=== PATIENT | female | born 1990 | race Caucasian/White ===

== ENCOUNTER 2017-11-12 11:29 | Emergency (ER) | payer SELFPAY ==
[2017-11-12 11:47] VITALS: BP 132/78; PULSE 87; RESP 18; TEMP 36.8; O2SAT 98; BMI 41.1
[2017-11-12 11:57] LABS: Apearance,Urine Clear (Clear); Color,Urine Yellow (Yellow); Glucose,Urine (UA) Negative (Negative); Ketones,Urine Negative (Negative); Protein,Urine Negative (Negative); Specific Gravity, Urine 1.025 (1.005-1.030)
[2017-11-12 11:58] LABS: Bilirubin,Urine Negative (Negative); Blood, Urine 3+ (Negative); UTC Leukocyte Esterase,Urine 1+ (Negative); UTC Nitrate,Urine Negative (Negative); Urobilinogen,Urine 0.2 EU/dl (0.2)
--- NOTE | 2017-11-12 12:18 | HMH.EDUTC ---
[facility] [place] Disposition Clinical Impression: UTI (urinary tract infection) Qualifiers: Urinary tract infection type: site unspecified Hematuria presence: with hematuria Qualified Code(s): N39.0 - Urinary tract infection, site not specified Disposition: Home, Self-Care Condition on Discharge: Good Instructions: Urinary Tract Infection, DI for Urinary Tract Infection (UTI) Additional Instructions: *Increase fluids. Water not Soda or Tea *Start antibiotic immediately and be sure to take as ordered for the FULL length of time although you should start to see improvement over the next 48 hours *Pyridium as needed Remember this medication will turn your urine [place]. This is normal but it will stain what ever it gets on *You should not use Pyridium for more than 48 hours. If so , follow up with your primary physician to review urine culture and ensure that antibiotic is adequate for infection *Be SURE to follow up anytime for new or worsening symptoms. AND in 48 hours for urine culture results AND in 10-14 days to repeat UA to ensure infection is resolved and blood no longer present *Be sure to let your PCP know that we sent urine cultures from the [facility] so they can follow up to ensure that you area the on the correct antibiotic Prescriptions: Phenazopyridine HCl [Pyridium 200mg Tablet] 200 pow PO TID #6 tab Sulfamethoxazole/Trimethoprim [Bactrim DS tablet] 1 each PO BID #20 tab Referrals: Edith Perea PA [Primary Care Provider] - Forms: Work/School Release Time of Disposition: 12:54 Medical Decision Making - Medical Records Medical records reviewed: Yes: I reviewed the patient's medical records. Vital Signs: 11/12/17 11:47 Temperature 98.2 F Temperature Source Temporal Artery Scan Pulse Rate [Brachial] 87 Respiratory Rate 18 Blood Pressure [Right Arm] 132/78 Blood Pressure Mean [Right Arm] 96 Blood Pressure Source [Right Arm] Automatic Cuff Blood Pressure Position [Right Arm] Sitting 02 Sat by Pulse Oximetry 98 Oxygen Delivery Method Room Air - Lab Data Lab results reviewed: Yes: I reviewed the patient's lab results. Lab Results 11/12/17 11:38: Urine Color Yellow, Urine Appearance Clear, Urine pH 6.0, Ur Specific [place] 1.025, Urine Protein Negative, Urine Glucose (UA) Negative, Urine Ketones Negative, Urine Blood 3+, Urine Nitrate Negative, Urine Bilirubin Negative, Urine Urobilinogen 0.2, Ur Leukocyte Esterase 1+ A Orders (Tests/Meds): ED MEDICATIONS Discontinued Medications Generic Name Dose Route Start Last Admin Trade Name Leo PRN Reason Stop Dose Admin Ceftriaxone Sodium 1 gm 11/12/17 12:34 11/12/17 12:38 Rocephin 1gm Vial IM 11/12/17 12:35 1 gm ONCE ONE Administration Lidocaine HCl 0 ml 11/12/17 12:34 11/12/17 12:39 Lidocaine 1% 10ml Mdv IM 11/12/17 12:35 2.1 ml ONCE ONE Administration ORDERS Category Date Time Status Urine Culture Stat Micro 11/12/17 12:40 Received - Miller Inquiry Pt receiving controlled substance: No Miller was queried for this patient: No [facility] HPI - General Stated complaint: Poss UTI Mode of Arrival: Ambulatory Source of Information: Patient Limitations: No Limitations Description of Symptoms (Recalled from Triage Doc. by RN): D/C AND BURNING WITH URINATION X 2 WEEKS HEENT Symptoms (Recalled from RN notes): No Resp Symptoms (Recalled from RN notes): No Skin Symptoms (Recalled from RN notes): No MS Symptoms (Recalled from RN notes): No Functional Status (Recalled from RN notes): NA - History of Present Illness Provider Complaint: Patient states that she has been having pain and burning with urination now for about 2 weeks States that she has been having pain on and off in her lower back State that she noticed that her urine looked dark States that she has had UTI before and feels like it did then - Related Data Previous Rx's Medication Instructions Recorded Phenazopyridine HCl [Pyridium 200 pow PO TID #6 tab 03/
--- NOTE | 2017-11-12 12:29 | ED_ITS ---
[facility] [place] Clinical Impression: UTI (urinary tract infection) Qualifiers: Urinary tract infection type: site unspecified Hematuria presence: with hematuria Qualified Code(s): N39.0 - Urinary tract infection, site not specified Disposition: Home, Self-Care Condition on Discharge: Good Instructions: Urinary Tract Infection, DI for Urinary Tract Infection (UTI) Additional Instructions: *Increase fluids. Water not Soda or Tea *Start antibiotic immediately and be sure to take as ordered for the FULL length of time although you should start to see improvement over the next 48 hours *Pyridium as needed Remember this medication will turn your urine [place]. This is normal but it will stain what ever it gets on *You should not use Pyridium for more than 48 hours. If so , follow up with your primary physician to review urine culture and ensure that antibiotic is adequate for infection *Be SURE to follow up anytime for new or worsening symptoms. AND in 48 hours for urine culture results AND in 10-14 days to repeat UA to ensure infection is resolved and blood no longer present *Be sure to let your PCP know that we sent urine cultures from the [facility] so they can follow up to ensure that you area the on the correct antibiotic Prescriptions: Phenazopyridine HCl [Pyridium 200mg Tablet] 200 pow PO TID #6 tab Sulfamethoxazole/Trimethoprim [Bactrim DS tablet] 1 each PO BID #20 tab Referrals: Edith Perea PA [Primary Care Provider] - Forms: Work/School Release Time of Disposition: 12:54 Medical Decision Making - Medical Records Medical records reviewed: Yes: I reviewed the patient's medical records. Vital Signs: 11/12/17 11:47 Temperature 98.2 F Temperature Source Temporal Artery Scan Pulse Rate [Brachial] 87 Respiratory Rate 18 Blood Pressure [Right Arm] 132/78 Blood Pressure Mean [Right Arm] 96 Blood Pressure Source [Right Arm] Automatic Cuff Blood Pressure Position [Right Arm] Sitting 02 Sat by Pulse Oximetry 98 Oxygen Delivery Method Room Air - Lab Data Lab results reviewed: Yes: I reviewed the patient's lab results. Lab Results 11/12/17 11:38: Urine Color Yellow, Urine Appearance Clear, Urine pH 6.0, Ur Specific [place] 1.025, Urine Protein Negative, Urine Glucose (UA) Negative, Urine Ketones Negative, Urine Blood 3+, Urine Nitrate Negative, Urine Bilirubin Negative, Urine Urobilinogen 0.2, Ur Leukocyte Esterase 1+ A Orders (Tests/Meds): ED MEDICATIONS Discontinued Medications Generic Name Dose Route Start Last Admin Trade Name Leo PRN Reason Stop Dose Admin Ceftriaxone Sodium 1 gm 11/12/17 12:34 11/12/17 12:38 Rocephin 1gm Vial IM 11/12/17 12:35 1 gm ONCE ONE Administration Lidocaine HCl 0 ml 11/12/17 12:34 11/12/17 12:39 Lidocaine 1% 10ml Mdv IM 11/12/17 12:35 2.1 ml ONCE ONE Administration ORDERS Category Date Time Status Urine Culture Stat Micro 11/12/17 12:40 Received - Miller Inquiry Pt receiving controlled substance: No Miller was queried for this patient: No [facility] [place] HPI - General Stated complaint: Poss UTI Mode of Arrival: Ambulatory Source of Information: Patient Limitations: No Limitations Description of Symptoms (Recalled from Triage Doc. by RN): D/C AND BURNING WITH URINATION X 2 WEEKS HEENT Symptoms (Recalled from RN notes): No Resp Symptoms (Recalled fr
[2017-11-12 12:55] VITALS: BP 132/78; PULSE 87; RESP 18; TEMP 36.8
== END 2017-11-12 12:56 | disposition home or self-care (01) ==
PROVIDERS: Emergency Provider Nurse Practitioner; Family Provider Physician Assistant; PCP Physician Assistant
DX: N39.0 Urinary tract infection, site not specified (principal); F17.210 Nicotine dependence, cigarettes, uncomplicated
CPT/HCPCS: 81003; 87086; 96372; 99202

== ENCOUNTER → 2018-08-06 18:10 | Outpatient (CLI) | payer BC, SELFPAY ==
[2018-08-06 18:50] LABS: Basophils % 0.4 % (0.1-2.0); Eosinophils # 0.2 K/mm3 (0.0-0.4); Eosinophils % 2.7 % (0.1-12.0); Hematocrit 45.5 % (37.0-47.0); Hemoglobin 15.3 g/dL (12.2-16.2); Lymphocytes # 2.5 K/mm3 (0.7-4.5); Lymphocytes % 32.8 % (10-50); Mean Corpuscular HGB Conc 33.5 g/dL (31.8-35.4); Mean Corpuscular Hemoglobin 30.1 pg (27.0-31.2); Mean Corpuscular Volume 89.8 fl (81-99); Mean Platelet Volume 9.3 fl (7.4-10.4); Monocytes # 0.4 K/mm3 (0.1-1.0); Monocytes % 5.5 % (1.7-9.3); Neutrophils # 4.5 K/mm3 (1.8-7.8); Neutrophils % 58.7 % (37.0-80.0); Platelet Count 264 K/mm3 (142-424); Red Blood Count 5.07 M/mm3 (4.20-5.40); Red Cell Distribution Width 13.5 % (11.5-17.5); White Blood Count 7.7 K/mm3 (4.8-10.8)
[2018-08-06 19:40] LABS: Alanine Aminotransferase 36 U/L (12-78); Albumin Level 3.9 gm/dL (3.4-5.0); Albumin/Globulin Ratio 1.1 (1.1-1.8); Alkaline Phosphatase 89 U/L (46-116); Anion Gap 16.3 mEq/L (5-15); Aspartate Amino Transferase 13 U/L (15-37); Bilirubin,Total 0.2 mg/dL (0.2-1.0); Blood Urea Nitrogen 11 mg/dL (7-18); Calcium 9.1 mg/dL (8.5-10.1); Carbon Dioxide 23 mmol/L (21.0-32.0); Chloride 105 mmol/L (98-107); Cholesterol 191 mg/dL (140-200); Creatinine,Serum 0.61 mg/dL (0.55-1.02); Estimated Glomerular Filt Rate 118 ml/min (>60); GFR (African American) 142 ML/MIN (>60); Globulin 3.6 gm/dl (1.3-3.2); Glucose 97 mg/dL (74-106); HDL Cholesterol 38 mg/dL (29-89); LDL Cholesterol 115 mg/dL (0-130); Potassium 4.3 mmoL/L (3.5-5.1); Sodium 140 mmol/L (136-145); Thyroid Stimulating Hormone 1.87 uIU/ml (0.358-3.740); Total Protein,Serum 7.5 gm/dL (6.4-8.2); Triglycerides 189 mg/dL (30-200); VLDL Cholesterol 38 mg/dL (0-40)
[2018-08-09 09:12] LABS: Vitamin D 25 Hydroxy 15.4 ng/mL (30.0-100.0)
== END ==
PROVIDERS: Visit Provider Physician Assistant
DX: E03.9 Hypothyroidism, unspecified (principal); F90.9 Attention-deficit hyperactivity disorder, unspecified type
CPT/HCPCS: 80053; 80061; 82652; 84436; 84443; 85025

== ENCOUNTER → 2018-10-09 18:00 | Outpatient (CLI) | payer BC, SELFPAY ==
[2018-10-09 20:33] LABS: Amphetamine/Metha Screen,Urine Positive ng/mL (<1000); Barbiturates Screen,Urine Negative ng/mL (<200); Benzodiazepines Screen,Urine Negative ng/mL (<200); Cannabinoid Screen,Urine Positive ng/mL (<50); Cocaine Screen,Urine Positive ng/mL (<300); Methadone Screen,Urine Negative ng/mL (<300); Opiate Screen,Urine Negative ng/mL (<300); Phencyclidine Screen,Urine Negative ng/mL (<25)
[2018-10-13 13:06] LABS: Benzoylecgonine (GC/MS) 2610 ng/mL (Cutoff=150); Cocaine + Metabolite Positive (.)
== END ==
PROVIDERS: Visit Provider Physician Assistant
DX: Z79.899 Other long term (current) drug therapy (principal)
CPT/HCPCS: 80305; 80353

== ENCOUNTER → 2019-05-21 14:26 | Outpatient (CLI) | payer BC, SELFPAY | PROVIDERS: Visit Provider Nurse Practitioner Family | DX: R30.0 Dysuria (principal) | CPT/HCPCS: 87086 ==

== ENCOUNTER → 2020-03-03 16:41 | Outpatient (CLI) | payer SELFPAY ==
[2020-03-03 16:57] LABS: Basophils % 0.5 % (0.1-2.0); Eosinophils # 0.1 K/mm3 (0.0-0.4); Eosinophils % 1.7 % (0.1-12.0); Hematocrit 46.4 % (37.0-47.0); Hemoglobin 16.2 g/dL (12.2-16.2); Lymphocytes # 2.4 K/mm3 (0.7-4.5); Lymphocytes % 29.7 % (10-50); Mean Corpuscular HGB Conc 34.9 g/dL (31.8-35.4); Mean Platelet Volume 8.7 fl (7.4-10.4); Monocytes # 0.5 K/mm3 (0.1-1.0); Monocytes % 5.7 % (1.7-9.3); Neutrophils % 62.5 % (37.0-80.0); Platelet Count 259 K/mm3 (142-424); Red Blood Count 5.22 M/mm3 (4.20-5.40); Red Cell Distribution Width 13.7 % (11.5-17.5); White Blood Count 7.9 K/mm3 (4.8-10.8)
[2020-03-03 17:01] LABS: HCG Qualitative, Serum Negative (Negative)
[2020-03-03 17:08] LABS: Chloride 106 mmol/L (98-107); Potassium 4.9 mmoL/L (3.5-5.1); Sodium 137 mmol/L (136-145)
[2020-03-03 17:11] LABS: Alanine Aminotransferase 34 U/L (12-78); Albumin Level 4.5 g/dl (3.5-5.0); Albumin/Globulin Ratio 1.4 (1.1-1.8); Alkaline Phosphatase 106 U/L (38-126); Anion Gap 12.9 mEq/L (5-15); Aspartate Amino Transferase 32 U/L (14-36); Bilirubin,Total 0.6 mg/dl (0.2-1.3); Blood Urea Nitrogen 11 mg/dl (7-17); Carbon Dioxide 23 mmol/L (22.0-30.0); Cholesterol 250 mg/dl (140-200); Estimated Glomerular Filt Rate 119 ml/min (>60); GFR (African American) 144 ML/MIN (>60); Globulin 3.3 g/dL (1.3-3.2); Total Protein,Serum 7.8 g/dl (6.3-8.2); Triglycerides 220 mg/dl (30-150); VLDL Cholesterol 44 mg/dL (0-40)
[2020-03-03 17:12] LABS: Calcium 9.6 mg/dl (8.4-10.2); Chol/HDL Ratio 6.4 (1-3.5); Glucose 97 mg/dl (74-100); HDL Cholesterol 39 mg/dl (40-60)
[2020-03-03 17:22] LABS: Campylobacter Not Detected (NotDetected); Clostridium Difficile A/B, PCR Not Detected (NotDetected); Enteroaggregative E coli Not Detected (NotDetected); Enteropathogenic E coli Not Detected (NotDetected); Enterotoxigenic E coli Not Detected (NotDetected); Plesimonas Shigalloides, PCR Not Detected (NotDetected); Salmonella, PCR Not Detected (NotDetected); Vibrio Cholerae Not Detected (NotDetected); Vibrio, PCR Not Detected (NotDetected); Yersinia Entercolitica, PCR Not Detected (NotDetected)
[2020-03-03 17:22] LABS: Direct LDL Cholesterol 190.51 mg/dL (100-129)
[2020-03-03 17:23] LABS: Adenovirus F 40/41, stool Not Detected (NotDetected); Astrovirus Not Detected (NotDetected); Cryptosporidium Not Detected (NotDetected); Cyclospora Cayetanesis Not Detected (NotDetected); Entamoeba histolytica Not Detected (NotDetected); Giardia lamblia Not Detected (NotDetected); Norovirus Not Detected (NotDetected); Rotavirus A Not Detected (NotDetected); Sapovirus Not Detected (NotDetected); Shiga-like toxin E coli Not Detected (NotDetected); Shigella Enterovasive E coli Not Detected (NotDetected)
[2020-03-03 17:28] LABS: T4 (Thyroxine) 11.3 ug/dl (5.53-11.0)
[2020-03-03 17:42] LABS: Thyroid Stimulating Hormone 3.49 uIU/mL (0.465-4.68)
[2020-03-10 04:44] LABS: 1,25 Dihydroxy Vitamin D 72 pg/mL (.); 1,25-Dihydroxy, Vitamin D-2 <10 pg/mL (.); 1,25-Dihydroxy, Vitamin D-3 72 pg/mL (.)
== END ==
PROVIDERS: Visit Provider Emergency Medicine
DX: R19.7 Diarrhea, unspecified (principal)
CPT/HCPCS: 80053; 80061; 82652; 84436; 84443; 84703; 85025; 87507

== ENCOUNTER 2020-03-14 17:14 | Emergency (ER) | payer BC, SELFPAY ==
[2020-03-14 17:15] VITALS: BP 148/82; PULSE 98; RESP 20; TEMP 36.7; O2SAT 100; BMI 42.9
--- NOTE | 2020-03-14 17:40 | HMH.EDUTC ---
[facility] [place] Clinical Impression: Pain, dental, Dental abscess Disposition: Home, Self-Care Condition on Discharge: Good Instructions: Tooth Abscess, DI for Dental Pain Additional Instructions: Follow up with your dentist as soon as they can see you. Take the oral antibiotics as directed. GO TO THE ER FOR ANY WORSENING SYMPTOMS OR CONCERNS Prescriptions: Ibuprofen [Ibuprofen 800mg Tablet] 800 mg PO Q8HP PRN #30 tab PRN Reason: Moderate Pain Transmission Status: Received by [id number] Amoxicillin/Potassium Clav [Augmentin 875-125 Tablet] 1 tab PO Q12H 10 Days #20 tab Transmission Status: Received by [id number] Referrals: Dante Foster MD [Primary Care Provider] - Forms: Work/School Release Time of Disposition: 17:43 Medical Decision Making - Medical Records Medical records reviewed: No: I reviewed the patient's medical records. - Miller Inquiry Pt receiving controlled substance: No Vital Signs: 03/14/20 17:15 03/14/20 17:54 Temperature 98.0 F 98.0 F Temperature Source Oral Oral Pulse Rate 98 H Pulse Rate [Radial] 98 H Respiratory Rate 20 20 Blood Pressure 148/82 H Blood Pressure [Right Arm] 148/82 H Blood Pressure Mean [Right Arm] 104 Blood Pressure Source Automatic Cuff Blood Pressure Source [Right Arm] Automatic Cuff Blood Pressure Position Supine Blood Pressure Position [Right Arm] Sitting 02 Sat by Pulse Oximetry 100 Oxygen Delivery Method Room Air Room Air Orders (Tests/Meds): ED MEDICATIONS Discontinued Medications Generic Name Dose Route Start Last Admin Trade Name Freq PRN Reason Stop Dose Admin Ceftriaxone Sodium 1 gm 03/14/20 17:41 03/14/20 17:45 Rocephin 1gm Vial IM 03/14/20 17:42 1 gm ONCE ONE Administration Protocol Ketorolac Tromethamine 30 mg 03/14/20 17:41 03/14/20 17:46 Toradol 60mg/2ml Vial IM 03/14/20 17:42 30 mg ONCE ONE Administration Lidocaine HCl 0 ml 03/14/20 17:41 03/14/20 17:46 Lidocaine 1% 10ml Mdv IM 03/14/20 17:42 2.1 ml ONCE ONE Administration [facility] [place]PI - General Stated complaint: PAIN R FACIAL AREA AND GOES TO EAR Time Seen by Provider: 03/14/20 17:40 Mode of Arrival: Ambulatory Source of Information: Patient Limitations: No Limitations Description of Symptoms (Recalled from Triage Doc. by RN): pain since sunday on the right side of the face HEENT Symptoms (Recalled from RN notes): Yes Resp Symptoms (Recalled from RN notes): No Skin Symptoms (Recalled from RN notes): No MS Symptoms (Recalled from RN notes): No Functional Status (Recalled from RN notes): wnl - History of Present Illness Provider Complaint: she c/o right lower jaw dental pain and swellling for the past 3 days. - Related Data Previous Rx's Medication Instructions Recorded albuterol sulfate 90 mcg/actuation 1 puff INHALATION Q6H PRN #6.7 g 08/05/19 aerosol inhaler atorvastatin 10 mg tablet 10 mg PO QHS #90 tab 03/11/20 Amoxicillin/Potassium Clav 1 tab PO Q12H 10 Days #20 tab 03/14/20 [Augmentin 875-125 Tablet] Ibuprofen [Ibuprofen 800mg 800 mg PO Q8HP PRN #30 tab 03/14/20 Tablet] Allergies Allergy/AdvReac Type Severity Reaction Status Date / Time No Known Allergies Allergy Verified 03/03/20 15:20 - Worker's Comp Is this a Worker's Comp case?: No [facility] History - Hepatitis A Screen Drug use history?: No High risk sexual behaviors?: No History of sexually transmitted infection?: No Currently employed?: No Childcare worker?: No Do you have indoor plumbing?: Yes Do you have electricity?: Yes Attestation statement:: This patient has been screened for Hepatitis A risk factors. I have reviewed the patient's past medical history: Yes Medical History: Reports:: Asthma Denies:: Cancer, Diabetes Mellitus Type 1, Diabetes Mellitus Type 2, MRSA Other Medical History: Reports: Hypothyroidism Comment: vitamin d def Other Surgeries: Yes: Colonoscopy, Other (Ca
[2020-03-14 17:54] VITALS: BP 148/82; PULSE 98; RESP 20; TEMP 36.7; O2SAT 100
== END 2020-03-14 17:55 | disposition home or self-care (01) ==
PROVIDERS: Emergency Provider Nurse Practitioner Family; PCP Emergency Medicine
DX: K04.7 Periapical abscess without sinus (principal); J45.909 Unspecified asthma, uncomplicated; E03.9 Hypothyroidism, unspecified; F17.210 Nicotine dependence, cigarettes, uncomplicated; Z79.899 Other long term (current) drug therapy
CPT/HCPCS: 96372; 99201

== ENCOUNTER → 2020-03-15 10:33 | Outpatient (CLI) | payer OTHER, SELFPAY ==
--- NOTE | 2020-03-15 10:34 | CT_ITS ---
PROCEDURE: CT ABDOMEN PELVIS W CON CLINICAL INDICATION: diarrhea Upper abdominal pain with diarrhea COMPARISON: No exams were available for comparison TECHNIQUE: IV Contrast: 75ML OPTIRAY 350 Oral Contrast None Axial images obtained with sagittal and coronal reformats. All CT scans at the facility use one or more dose reduction, viz: automated exposure control, ma/kV adjustment per patient size (including targeted exams where dose is matched to indication, i.e. head), or iterative reconstruction technique. FINDINGS: LOWER THORAX: No acute finding ABDOMEN & PELVIS: The liver, adrenal glands, pancreas, and kidneys have an unremarkable appearance. The spleen is enlarged at 14 cm. There is a nodular area of soft tissue density along the right lateral aspect the gallbladder measuring 6 mm and could be due to a polyp or noncalcified stone. Gallbladder ultrasound may provide further evaluation. No intestinal obstruction or free air. Unremarkable appendix. No pelvic mass or abnormal fluid collection No acute bony findings. IMPRESSION: 1. Possible gallbladder polyp ordered noncalcified adherent stone. Consider gallbladder ultrasound for further evaluation 2. Mild splenomegaly Dictated by: Elliot Brown MD 03/16/2020 11:16 Electronically signed by Elliot Brown MD in [place] 03/16/2020 11:16
== END ==
PROVIDERS: PCP Emergency Medicine; Visit Provider Emergency Medicine
DX: R19.7 Diarrhea, unspecified (principal)
CPT/HCPCS: 74177; Q9967

== ENCOUNTER → 2020-03-31 08:42 | Outpatient (CLI) | payer BC, SELFPAY ==
--- NOTE | 2020-03-31 08:43 | US_ITS ---
PROCEDURE: US GALLBLADDER CLINICAL INDICATION: stone vs polyp Upper abdominal pain, diarrhea COMPARISON: CT ABDOMEN PELVIS W CON from 03/15/2020 FINDINGS: Pancreas: Unremarkable/Not well seen Liver: Unremarkable. There is appropriate direction of blood flow within a non dilated portal vein. Right kidney: Unremarkable appearing. No hydronephrosis. Gallbladder: There is a 7 mm polyp arising from the anterior wall of the gallbladder. The gallbladder is small with mildly thickened wall. Common bile duct is normal at 2 mm. No shadowing stones are evident. No pericholecystic fluid IMPRESSION: There is a 7 mm gallbladder polyp with mild thickening of the gallbladder wall. No gallstones apparent Dictated by: Elliot Brown MD 03/31/2020 15:17 Electronically signed by Elliot Brown MD in [place] 03/31/2020 15:17
== END ==
PROVIDERS: PCP Emergency Medicine; Visit Provider Emergency Medicine
DX: R93.89 Abnormal findings on diagnostic imaging of other specified body structures (principal)
CPT/HCPCS: 76705

== ENCOUNTER → 2020-04-07 11:49 | Outpatient (CLI) | payer BC, SELFPAY ==
[2020-04-07 13:54] LABS: Coronavirus 19 IgM Antibody Negative (Negative)
[2020-04-07 13:56] LABS: Coronavirus 19 IgG Antibody Positive (Negative)
== END ==
PROVIDERS: Visit Provider Internal Medicine Gastroenterology
DX: Z01.818 Encounter for other preprocedural examination (principal); Z12.11 Encounter for screening for malignant neoplasm of colon
CPT/HCPCS: 36415; 86328

== ENCOUNTER 2020-04-09 09:48 | Day surgery (SDC) | payer BC, SELFPAY ==
[2020-04-05 14:36] VITALS: BMI 46.5
[2020-04-09] VITALS (7 sets, daily range): BP systolic 119–153; BP diastolic 45–103; PULSE 74–89; RESP 16–18; TEMP 36.1–36.6; O2SAT 95–98
[2020-04-09 10:43] LABS: Urine Pregnancy, HCG Qual. Negative (Negative)
--- NOTE | 2020-04-09 10:53 | HMH.ANESCL ---
[facility] [place] Anesthesia Checklist - Patient Identification Patient Identification: Arm Band, Verbal (Name & ) - Structural Data Admitted From: Home Planned Operative Procedure/s: Colonoscopy Consent for Planned Operative Procedure(s) Verified: Yes Verified Documents: Surgical Consent, History and Physical - NPO Status Verified Time NPO: 00:00 - Chart Verification Results Verified: HCG - Additional verifications Patient : No Anesthesia Reactions: No - Airway Assessment C-Spine Mobility Assessed: Yes TMJ Mobility Assessed: Yes Dentition: Good Dentition - Neurological Assessment Level of Consciousness: Awake, Alert, Appropriate, Follows Commands Hx Seizures: No Numbness or tingling in extremities: No - Anesthesia Plan Anesthesia Risk discussed: Yes Anesthesia Plan: Verified ASA Class: III Anesthesia Type: MAC [facility] [place] History I have reviewed the patient's past medical history: Yes Medical History: Reports:: Asthma, Cancer (cervical) Denies:: Diabetes Mellitus Type 1, Diabetes Mellitus Type 2, Internal Pacemaker, MRSA, Seizures *Have you ever received a pneumonia vaccine?: No *Have you received a flu vaccine this season?: No Other Medical History: Reports: Hypothyroidism Comment:: morbid obesity Anesthesia experience/problems:: No prior complications Other Surgeries: Yes: Colonoscopy, Other (Cancer cells removed from Cervix). No: Pacemaker Amputation: No Fractures: No - *Social History Last grade of school completed: 11th or 12th Smoking Status: Current every day smoker Tobacco Type: cigarettes # Packs/Day (cigarettes): 1 Alcohol Intake: never Substance Use Type: former substance user, marijuana, crack/cocaine, amphetamines *Occupational Status:: unemployed Housing: apartment Household Members: none *Travel in the last 8 weeks: None Family Hx:: Asthma, Cancer, Diabetes, Hypertension
[2020-04-09 11:20] LABS: Barbiturates Screen,Urine Negative ng/ml (<200)
[2020-04-09 11:21] LABS: Benzodiazepines Screen,Urine Negative ng/ml (<200); Cannabinoid Screen,Urine Positive ng/ml (<50)
[2020-04-09 11:22] LABS: Cocaine Screen,Urine Negative ng/ml (<300)
[2020-04-09 11:23] LABS: Methadone Screen,Urine Negative ng/ml (<300); Opiate Screen,Urine Negative ng/ml (<300)
[2020-04-09 11:24] LABS: Phencyclidine Screen,Urine Negative ng/ml (<25)
--- NOTE | 2020-04-09 12:18 | HMH.PROC ---
[facility] Procedure Note Procedure Note:: Colonoscopy Procedure Report: Colonoscopy with cold biopsies Endoscopist: Ulysses Burroughs II, MD Referring physician: Dante Foster MD Date of Procedure: April 09, 2020 Equipment: Olympus 180 variable stiffness pediatric colonoscope Sedation: MAC sedation Indication: Mrs. Vargas is a 29-year-old female with diarrhea that began 8 to 9 months ago. She also has associated right upper quadrant abdominal pain. She reports 5-6 loose bowel movements daily. She reports no gassiness or bloating. She reports no rectal bleeding, weight loss or family history of IBD (no family history of colitis or Crohn's disease). She reports no family history of colon cancer. This is her first colonoscopy for diagnostic purposes. She did have PCR gastrointestinal panel on March 03, 2020 that was normal. She also had normal CBC and normal liver function and chemistries. Procedure: Prior to the procedure, a history and physical exam was performed, and patient's medications and allergies were reviewed. The risks, benefits and alternatives of the sedation and procedure were discussed with the patient. All questions were answered and informed consent was obtained. The patient was brought to the procedure room. Patient identification and proposed procedure were verified by the physician and the nurse. The patient was placed in a left lateral decubitus position and the scope was passed under direct vision. Throughout the procedure, the patient's blood pressure, pulse, and oxygen saturations were monitored continuously. The colonoscopy was accomplished without difficulty. The patient tolerated the procedure well. Findings: On digital rectal examination there was normal rectal tone. There were no external hemorrhoids. The colonoscope was introduced through the anal canal to the rectum and advanced to the cecum. The ileocecal valve and appendiceal orifice were identified. The scope was advanced a short distance into the ileum which appeared grossly normal. The scope was then withdrawn into the colon. The cecum, ascending, transverse, descending, sigmoid and rectum were grossly normal. There was a diminutive 3 mm polyp in the descending colon that was removed via cold biopsy. Cold biopsies were taken from the right colon to rule out microscopic colitis. There were no other mucosal abnormalities identified. Upon retroflexion within the rectum there were grade 1 internal hemorrhoids.The preparation was excellent throughout with [place] Preparation Score of 9. The cecal time was 12 minutes. Impression: 1. Diminutive descending colon polyp 2. Grade 1 internal hemorrhoids Plan: I will follow-up the polyp histology as well as the random colon biopsies. I suspect that she has IBS?D. We will discuss treatment options that may include antispasmodics (dicyclomine) versus Viberzi. I am going to recommend right upper quadrant abdominal ultrasound and HIDA scan because of her right upper quadrant pain.
[2020-04-09 15:59] LABS: Amphetamine/Metha Screen,Urine Negative ng/ml (<1000)
== END 2020-04-09 13:25 | disposition home or self-care (01) ==
PROVIDERS: Nurse Anesthetist, Certified Registered; PCP Emergency Medicine; Visit Provider Internal Medicine Gastroenterology
PROC: 0DJD8ZZ Inspection of Lower Intestinal Tract, Via Natural or Artificial Opening Endoscopic (ICD-10-PCS; CPT 45378; principal; 2020-04-09 11:00)
DX: K63.5 Polyp of colon (principal); K64.0 First degree hemorrhoids; J45.909 Unspecified asthma, uncomplicated; Z85.41 Personal history of malignant neoplasm of cervix uteri; E03.9 Hypothyroidism, unspecified; Z72.0 Tobacco use; Z83.3 Family history of diabetes mellitus; Z82.49 Family history of ischemic heart disease and other diseases of the circulatory system; Z80.9 Family history of malignant neoplasm, unspecified; Z82.5 Family history of asthma and other chronic lower respiratory diseases
CPT/HCPCS: 45380; 80305; 81025

== ENCOUNTER → 2020-04-15 10:01 | Outpatient (CLI) | payer BC, SELFPAY ==
[2020-04-15 10:20] LABS: Basophils % 0.5 % (0.1-2.0); Eosinophils # 0.4 K/mm3 (0.0-0.4); Eosinophils % 4.2 % (0.1-12.0); Hematocrit 44.2 % (37.0-47.0); Hemoglobin 14.8 g/dL (12.2-16.2); Lymphocytes # 2.4 K/mm3 (0.7-4.5); Lymphocytes % 28.6 % (10-50); Mean Corpuscular HGB Conc 33.4 g/dL (31.8-35.4); Mean Corpuscular Hemoglobin 30.8 pg (27.0-31.2); Mean Corpuscular Volume 92.2 fl (81-99); Mean Platelet Volume 8.2 fl (7.4-10.4); Monocytes # 0.4 K/mm3 (0.1-1.0); Monocytes % 4.9 % (1.7-9.3); Neutrophils # 5.1 K/mm3 (1.8-7.8); Neutrophils % 61.8 % (37.0-80.0); Platelet Count 242 K/mm3 (142-424); Red Cell Distribution Width 13.5 % (11.5-17.5); White Blood Count 8.3 K/mm3 (4.8-10.8)
[2020-04-15 10:22] LABS: Urine Pregnancy, HCG Qual. Negative (Negative)
[2020-04-15 10:53] LABS: Alanine Aminotransferase 34 U/L (12-78); Albumin Level 4.1 g/dl (3.5-5.0); Albumin/Globulin Ratio 1.5 (1.1-1.8); Alkaline Phosphatase 103 U/L (38-126); Anion Gap 16.2 mEq/L (5-15); Aspartate Amino Transferase 25 U/L (14-36); Bilirubin,Total 0.4 mg/dl (0.2-1.3); Blood Urea Nitrogen 11 mg/dl (7-17); Calcium 9.1 mg/dl (8.4-10.2); Carbon Dioxide 21 mmol/L (22.0-30.0); Chloride 106 mmol/L (98-107); Estimated Glomerular Filt Rate 147 ml/min (>60); GFR (African American) 178 ML/MIN (>60); Globulin 2.8 g/dL (1.3-3.2); Glucose 119 mg/dl (74-100); Potassium 4.2 mmoL/L (3.5-5.1); Sodium 139 mmol/L (136-145); Total Protein,Serum 6.9 g/dl (6.3-8.2)
[2020-04-15 11:16] LABS: Coronavirus 19 IgG Antibody Negative (Negative); Coronavirus 19 IgM Antibody Negative (Negative)
== END ==
PROVIDERS: Visit Provider Surgery
DX: Z01.818 Encounter for other preprocedural examination (principal); K81.1 Chronic cholecystitis
CPT/HCPCS: 36415; 80053; 81025; 85025; 86328

== ENCOUNTER 2020-04-16 06:53 | Day surgery (SDC) | payer BC, SELFPAY ==
[2020-04-14 14:05] VITALS: BMI 46.5
[2020-04-16] VITALS (14 sets, daily range): BP systolic 117–157; BP diastolic 72–104; PULSE 69–87; RESP 12–25; TEMP 36.3–36.9; O2SAT 87–99
--- NOTE | 2020-04-16 09:12 | HMH.OPNOTE ---
Date of procedure: 04/16/20 Pre-op Diagnosis:: Chronic cholecystitis Gallbladder polyp Post-op Diagnosis:: Same Procedure performed:: Laparoscopic cholecystectomy Surgeon:: Danyel Christina MD [employer]BI[employer]GE DRIVER:: Jose L Weeks Anesthesia: GETA Estimated blood loss (mL): 15 Operative findings:: Moderate pericholecystic fat stranding Significant inflammatory response and thickening in and around infundibulum Dome down approach utilized secondary to severe inflammatory changes and thickening of infundibulum Operative note:: After informed consent was obtained, the patient was taken to the operating room and placed in the supine position. General anesthesia was induced and the abdomen was prepped and draped in a sterile fashion. After infiltration with local anesthetic an infraumbilical incision was made. A Veress needle was placed in position. The abdomen was insufflated. A 5 mm optical trocar was placed in position. Under direct visualization, a 12 mm trocar was placed in the subxiphoid position and 2 additional 5 mm trocars were placed in the right upper quadrant. The gallbladder was elevated up and over the liver margin. The tissue around the cystic duct very thickened and difficult to dissect. The infundibular region was quite enlarged. A single clip was placed at the infundibulum after a window was completed; however, complete capture of tissue was not achieved. Secondary to thickening of tissue and chronic inflammation the decision was made to proceed with a dome down approach . Harmonic liana were utilized to carefully dissect the gallbladder away from the liver margin. Endoloops (x2) were then placed in position at the infundibulum. The infundibulum was then transected with harmonic liana. The gallbladder was placed in a retrieval bag and removed through the subxiphoid trocar site. The right upper quadrant was thoroughly irrigated. No active bleeding or bile leak was noted. Fascia at the subxiphoid trocar site was reapproximated utilizing the NeoClose device. The remaining trocars were removed. All wounds were irrigated and skin was closed with 4-0 Monocryl in a subcuticular fashion. Steri-Strips were applied. The patient's anesthetic agents were reversed and extubation was completed prior to transfer to recovery in stable condition. Condition: stable Disposition: PACU Specimens:: Gallbladder and contents Complications:: No immediate
--- NOTE | 2020-04-16 09:23 | P.PN_ITS ---
[facility] Anesthesia Checklist - Structural Data Admitted From: Home Planned Operative Procedure/s: lap keshia Consent for Planned Operative Procedure(s) Verified: Yes - Additional verifications Anesthesia Reactions: No Hx Blood Transfusions: No Blood Transfusion Reaction: No - Airway Assessment C-Spine Mobility Assessed: Yes TMJ Mobility Assessed: Yes Dentition: Good Dentition - Neurological Assessment Level of Consciousness: Awake, Alert, Appropriate - Anesthesia Plan Anesthesia Risk discussed: Yes Anesthesia Plan: Verified ASA Class: III Anesthesia Type: General [facility] History I have reviewed the patient's past medical history: Yes Medical History: Reports:: Asthma, Depression, Gastroesophageal Reflux Disease(GERD), Hyperlipidemia, Hypertension, Migraine Denies:: Cancer, Diabetes Mellitus Type 1, Diabetes Mellitus Type 2, Internal Pacemaker, MRSA, Seizures *Have you ever received a pneumonia vaccine?: No *Have you received a flu vaccine this season?: No Other Medical History: Reports: Hypothyroidism. Denies: Blood Transfusion Reaction Anesthesia experience/problems:: none Other Surgeries: Yes: Colonoscopy, Other (Cancer cells removed from Cervix). No: Pacemaker Amputation: No Fractures: No - *Social History Last grade of school completed: High school graduate Smoking Status: Current every day smoker Tobacco Type: cigarettes # Packs/Day (cigarettes): 1 Alcohol Intake: never Substance Use Type: marijuana *Occupational Status:: unemployed Housing: house Household Members: none *Travel in the last 8 weeks: None - Psychiatric History Pschychiatric History:: Reports:: Depression Family Hx:: Asthma, Cancer, Diabetes, Hypertension, Hyperlipidemia, Stroke, Thyroid Disorder, Substance abuse
--- NOTE | 2020-04-16 09:24 | HMH.ANESI ---
[facility] Anesthesia Record Part I Intake, IV Amount: 1,500 Estimated blood loss (mL): 0 Urine output (mL): 0 Blood Pressure: 140/86 SaO2: 98 Pulse Rate: 75 Respiratory Rate: 12 Temperature: 97.5 F Patient is:: Awake, Stable Stable to PACU at:: 09:20
--- NOTE | 2020-04-16 10:16 | PC.NURSE ---
Pt C/O RUQ pain that only feels better while lying flat, doesn' t want to move. Encouraged to move around, possibility of gas bubble. Sipping water. Continue to monitor.
--- NOTE | 2020-04-16 10:46 | P.PN_ITS ---
[facility] Anesthesia Record Part II Discharge Time: 09:50 Destination: [facility] PACU nurse assessment reviewed?: Yes Patient Condition:: Good Anesthesia Complications:: None Swallowing reflex intact?: Yes Cyanosis?: No Blood Pressure: 127/75 Pulse Rate: 76 Temperature: 97.4 F Mental Status: Alert & Oriented Pain level:: 5 Nausea and/or vomitting:: None Intake, IV Amount: 1,500
== END 2020-04-16 10:46 | disposition home or self-care (01) ==
LOC: OR 06:54
PROVIDERS: PCP Emergency Medicine; Visit Provider Surgery
PROC: 0FT44ZZ Resection of Gallbladder, Percutaneous Endoscopic Approach (ICD-10-PCS; CPT 47562; principal; 2020-04-16 08:30)
DX: K81.1 Chronic cholecystitis (principal); J45.909 Unspecified asthma, uncomplicated; F32.9 Major depressive disorder, single episode, unspecified; K21.9 Gastro-esophageal reflux disease without esophagitis; E78.5 Hyperlipidemia, unspecified; I10 Essential (primary) hypertension; G43.909 Migraine, unspecified, not intractable, without status migrainosus; E03.9 Hypothyroidism, unspecified; Z85.41 Personal history of malignant neoplasm of cervix uteri; Z72.0 Tobacco use; Z83.3 Family history of diabetes mellitus; Z82.3 Family history of stroke; Z82.49 Family history of ischemic heart disease and other diseases of the circulatory system
CPT/HCPCS: 47562; 96374; J2405; J2710

== ENCOUNTER 2020-06-01 10:42 | Emergency (ER) | payer BC, SELFPAY ==
[2020-06-01 10:49] VITALS: BP 136/78; PULSE 97; RESP 14; TEMP 36.8; O2SAT 97; BMI 44.9
--- NOTE | 2020-06-01 10:58 | HMH.EDUTC ---
[facility] [place] Disposition Clinical Impression: Silvana rash of groin Disposition: Home, Self-Care Condition on Discharge: Good Instructions: Yeast Infection-Skin, DI for Yeast Infection-Skin, Nystatin Topical Additional Instructions: Keep folds of skin clean and dry APPLY medication as prescribed Small pillow cases in skin folds while at rest can help with keeping skin from touching skin and sweating Follow up with Family doctor if no improvement Return if needed 'Straight to ER if any life threatening symptoms Prescriptions: Nystatin [Nystatin Topical Powder 30GM*] 1 applicatio TP BID #1 bot Transmission Status: Pending to [facility] Referrals: Dante Foster MD [Primary Care Provider] - As needed Time of Disposition: 11:14 Medical Decision Making - Miller Inquiry Pt receiving controlled substance: No Miller was queried for this patient: No Vital Signs: 06/01/20 10:49 Temperature 98.2 F Temperature Source Oral Pulse Rate [Radial] 97 H Respiratory Rate 14 Blood Pressure [Right Arm] 136/78 Blood Pressure Mean [Right Arm] 97 Blood Pressure Source [Right Arm] Automatic Cuff Blood Pressure Position [Right Arm] Sitting 02 Sat by Pulse Oximetry 97 Oxygen Delivery Method Room Air [facility] [place] HPI - General Stated complaint: right leg rash Time Seen by Provider: 06/01/20 10:58 Mode of Arrival: Ambulatory Source of Information: Patient Limitations: No Limitations Description of Symptoms (Recalled from Triage Doc. by RN): rash, started out as a razor burn and now is getting worse. HEENT Symptoms (Recalled from RN notes): No Resp Symptoms (Recalled from RN notes): No Skin Symptoms (Recalled from RN notes): Yes MS Symptoms (Recalled from RN notes): No Functional Status (Recalled from RN notes): wnl - History of Present Illness Provider Complaint: Patient states that she started out with razer burn in her right grown area that was itchy and she scratched it States that she noticed it looked like it was getting worse and she has been applying cream on it but not got any better so she come in to get it checked - Related Data Home Medications Medication Instructions Recorded Confirmed Atorvastatin Calcium [Lipitor 10mg 10 mg PO QHS 04/09/20 05/10/20 Tab] Norethindrone [Norlyda] 0.35 mg PO DAILY 04/14/20 05/10/20 psyllium husk 0.4 gram capsule 0.4 g PO DAILY 04/14/20 05/10/20 dicyclomine 10 mg capsule 10 mg PO TID cap 05/10/20 05/10/20 Previous Rx's Medication Instructions Recorded Nystatin [Nystatin Topical Powder 1 applicatio TP BID #1 bot 06/01/20 30GM*] Allergies Allergy/AdvReac Type Severity Reaction Status Date / Time No Known Allergies Allergy Verified 05/10/20 15:32 - Worker's Comp Is this a Worker's Comp case?: No H History - Hepatitis A Screen Drug use history?: No High risk sexual behaviors?: No History of sexually transmitted infection?: No Currently employed?: No Childcare worker?: No Do you have indoor plumbing?: Yes Do you have electricity?: Yes Attestation statement:: This patient has been screened for Hepatitis A risk factors. I have reviewed the patient's past medical history: Yes Medical History: Reports:: Asthma, Depression, Gastroesophageal Reflux Disease(GERD), Hyperlipidemia, Hypertension, Migraine Denies:: Cancer, Diabetes Mellitus Type 1, Diabetes Mellitus Type 2, Internal Pacemaker, MRSA, Seizures Other Medical History: Reports: Hypothyroidism. Denies: Blood Transfusion Reaction Comment: morbid obesity,IBS Other Surgeries: Yes: Appendectomy, Colonoscopy, Other (Cancer cells removed from Cervix). No: Pacemaker Amputation: No Fractures: No Comment: LEEP - Social History Smoking Status: Current every day smoker Tobacco Type: cigarettes # Packs/Day (cigarettes): 1 Alcohol Intake: never Substance Use Type: marijuana Occupational Status: employed Housing: house Household Members: none - Psychiatric History Pschychiatric History::
[2020-06-01 11:18] VITALS: BP 136/78; PULSE 97; RESP 14; TEMP 36.8; O2SAT 97
== END 2020-06-01 11:22 | disposition home or self-care (01) ==
PROVIDERS: Emergency Provider Nurse Practitioner; PCP Emergency Medicine
DX: B37.2 Candidiasis of skin and nail (principal); K21.9 Gastro-esophageal reflux disease without esophagitis; E78.5 Hyperlipidemia, unspecified; E03.9 Hypothyroidism, unspecified; I10 Essential (primary) hypertension; J45.909 Unspecified asthma, uncomplicated; F33.1 Major depressive disorder, recurrent, moderate; G43.709 Chronic migraine without aura, not intractable, without status migrainosus; Z79.899 Other long term (current) drug therapy
CPT/HCPCS: 99201

== ENCOUNTER → 2020-09-09 15:03 | Outpatient (CLI) | payer BC, SELFPAY ==
[2020-09-09 16:41] LABS: Free T4 (Free Thyroxine) 1.11 ng/dl (0.78-2.19)
== END ==
PROVIDERS: Visit Provider Emergency Medicine
DX: E03.9 Hypothyroidism, unspecified (principal); K59.00 Constipation, unspecified
CPT/HCPCS: 84439; 84443

== ENCOUNTER → 2020-09-16 15:30 | Outpatient (CLI) | payer BC, SELFPAY | PROVIDERS: PCP Physician Assistant; Visit Provider Physician Assistant | DX: Z20.828 Contact with and (suspected) exposure to other viral communicable diseases (principal); U07.1 COVID-19 | CPT/HCPCS: U0003 ==

== ENCOUNTER 2020-12-21 10:41 | Emergency (ER) | payer BC, SELFPAY ==
--- NOTE | 2020-12-21 10:35 | ECG_ITS ---
APPROVED REPORT Exam: Resting ECG HR:84 bpm ECG Measurements Heart Rate 84 AXES HI 154 P 41 QRSd 98 QRS 24 QT 392 T 34 QTc 463 Conclusion Normal sinus rhythm Normal ECG Electronically signed by : Jason Hills, 12/23/2020 13:58:54
[2020-12-21 10:43] VITALS: BP 143/91; PULSE 80; PULSE 92; RESP 18; TEMP 36.6; O2SAT 96; O2SAT 98; BMI 43.9
--- NOTE | 2020-12-21 10:54 | HMH.EDGENADL ---
ED Disposition Clinical Impression: Postoperative complication Qualifiers: Surgical complication system/body Area: musculoskeletal system Surgical complication type: unspecified Procedure type: non-musculoskeletal Qualified Code(s): M96.89 - Other intraoperative and postprocedural complications and disorders of the musculoskeletal system Disposition: Home, Self-Care Condition on Discharge: Good Referrals: PCP,No [Primary Care Provider] - 3 days Time of Disposition: 11:13 - Critical Care Critical Care Time: No Attestation: On 12/21/20, the high probability of a clinically significant, sudden or life threatening deterioration of the following system(s) required my full and direct attention, intervention and personal management. The time I documented below is in addition to time spent performing reported procedures but includes the following listed in this critical care notation. Medical Decision Making - Medical Records Medical records reviewed: Yes: I reviewed the patient's medical records. - Miller Inquiry Pt receiving controlled substance: No Vital Signs: 12/21/20 10:43 Temperature 98 F Temperature Source Oral Pulse Rate [Right Brachial] 92 H Respiratory Rate 18 Blood Pressure [Right Arm] 143/91 H Blood Pressure Mean [Right Arm] 108 Blood Pressure Source [Right Arm] Automatic Cuff Blood Pressure Position [Right Arm] Supine 02 Sat by Pulse Oximetry 96 Oxygen Delivery Method Room Air - ECG Data Tracing #1 84 beats., Normal sinus rhythm, normal intervals, no ectopy, no ST elevation or depression. ECG initial impression date: 12/21/20 ECG initial impression time: 10:39 Medical Decision Narrative: 30yo F evaluated for multiple complaints postoperative day 1. Patient is in no acute distress. Patient's physical exam is benign. She states she is unable to move or sit up. I asked the patient to sit up so I could listen the posterior lung adams. She was able to sit up without difficulty. Patient ambulated into the emergency department without difficulty. Patient then states I have to have a note for work because there is no way I can go to work like this tomorrow. Patient encouraged to follow-up with her surgeon regarding work restrictions. General Adult HPI - General Chief complaint: Chest Pain Stated complaint: Chest pain Time Seen by Provider: 12/21/20 10:55 Mode of Arrival: Ambulatory Limitations: No Limitations Description of Symptoms (Recalled from ER Triage Doc. by RN): Chest pain with inspiration - History of Present Illness HPI narrative: 30yo F reports the emergency department secondary to multiple complaints. Patient reports she had surgery at [facility] in [place] yesterday. She is uncertain exactly what procedure she underwent but reports she had to have a lesion removed from her vaginal wall. She has no vaginal complaints. She denies any vaginal bleeding or pain. She denies any fever. She complains of general fatigue, shortness of breath, sore throat. Patient called the surgery center and they encouraged her to be evaluated in the emergency department. Patient continues to smoke. - Related Data Home Medications Medication Instructions Recorded Confirmed Norethindrone [Norlyda] 0.35 mg PO DAILY 04/14/20 09/16/20 bupropion HCl 150 mg 24 hr tablet, 150 mg PO DAILY 07/23/20 09/16/20 extended release colestipol 1 gram tablet 1 g PO BID 07/23/20 09/16/20 Previous Rx's Medication Instructions Recorded albuterol sulfate 90 mcg/actuation 2 puff INHALATION Q4-6H PRN #6.7 g 07/23/20 aerosol inhaler Allergies Allergy/AdvReac Type Severity Reaction Status Date / Time No Known Allergies Allergy Verified 12/21/20 10:52 [facility] History - Hepatitis A Screen Drug use history?: No High risk sexual behaviors?: No History of sexually transmitted infection?: No Currently employed?: No Childcare worker?: No Do you have indoor plumbing?: Yes Do you have eugenio
[2020-12-21 11:01] VITALS: BP 152/64; PULSE 83; O2SAT 95
[2020-12-21 11:21] VITALS: BP 132/71; PULSE 81; RESP 18; TEMP 37; O2SAT 97
== END 2020-12-21 11:21 | disposition home or self-care (01) ==
PROVIDERS: Emergency Provider Family Medicine
DX: M96.89 Other intraoperative and postprocedural complications and disorders of the musculoskeletal system (principal); R53.81 Other malaise; K21.9 Gastro-esophageal reflux disease without esophagitis; E78.5 Hyperlipidemia, unspecified; E03.9 Hypothyroidism, unspecified; I10 Essential (primary) hypertension; J45.909 Unspecified asthma, uncomplicated
CPT/HCPCS: 93005; 99281

== ENCOUNTER 2021-03-13 10:17 | Emergency (ER) | payer BC, SELFPAY ==
[2021-03-13 10:25] VITALS: BP 122/70; PULSE 95; RESP 14; TEMP 37; O2SAT 96; BMI 43.2
[2021-03-13 10:43] LABS: UTC Strep Screen (Rapid) Positive (Negative)
--- NOTE | 2021-03-13 10:51 | HMH.EDUTC ---
[facility] [place] Clinical Impression: Strep throat Disposition: Home, Self-Care Condition on Discharge: Good Instructions: Strep Throat, DI for Strep Throat Additional Instructions: Drink plenty of fluids. Take tylenol or ibuprofen for pain or fever. Take the medications as directed. Follow up with your regular doctor. GO TO THE ER FOR ANY WORSENING SYMPTOMS Throw your tooth brush away and get a new one. Prescriptions: Ondansetron [Zofran 4mg ODT] 4 mg PO Q8HP PRN #12 tab.rapdis PRN Reason: Nausea [facility] Amoxicillin [Amoxicillin 500mg Tab] 500 mg PO TID 10 Days #30 tab Transmission Status: Received by [facility] methylPREDNISolone [Medrol] 4 mg PO DIRECTED 6 Days #21 tab.ds.pk Transmission Status: Received by [facility] Referrals: Edith Perea PA [Primary Care Provider] - Time of Disposition: 10:57 Medical Decision Making - Medical Records Medical records reviewed: No: I reviewed the patient's medical records. - Miller Inquiry Pt receiving controlled substance: No Vital Signs: 03/13/21 10:25 03/13/21 11:05 Temperature 98.6 F 98.5 F Temperature Source Oral Pulse Rate 91 H Pulse Rate [Right] 95 H Respiratory Rate 14 16 Blood Pressure 119/74 Blood Pressure [Right Arm] 122/70 Blood Pressure Mean [Right Arm] 87 02 Sat by Pulse Oximetry 96 - Lab Data Lab results reviewed: Yes: I reviewed the patient's lab results. Lab Results 03/13/21 10:33: Strep Scn [facility] Positive A 03/13/21 10:36: Tst Clinic Negative Orders (Tests/Meds): ED MEDICATIONS Discontinued Medications Generic Name Dose Route Start Last Admin Trade Name Freq PRN Reason Stop Dose Admin Ceftriaxone Sodium 1 gm 03/13/21 10:52 03/13/21 11:02 Ceftriaxone 1gm Vial IM 03/13/21 10:53 1 gm ONCE ONE Administration Protocol Lidocaine HCl 0 ml 03/13/21 10:52 03/13/21 11:02 Lidocaine 1% 5ml Pf Vial IM 03/13/21 10:53 2.5 ml ONCE ONE Administration Methylprednisolone Sodium Succinate 125 mg 03/13/21 10:52 03/13/21 11:02 Methylprednisolone Sod Succ 125mg Vial IM 03/13/21 10:53 125 mg ONCE ONE Administration ORDERS Category Date Time Status Strep Screen Confirmation Stat Micro 03/13/21 10:33 Received [facility] [place] H[place] - General Stated complaint: feels like throat closing,fever Time Seen by Provider: 03/13/21 10:51 Mode of Arrival: Ambulatory Source of Information: Patient Limitations: No Limitations Description of Symptoms (Recalled from Triage Doc. by RN): pt states she had a fever all night and is having a sore throat. HEENT Symptoms (Recalled from RN notes): Yes (sore throat) Resp Symptoms (Recalled from RN notes): No Skin Symptoms (Recalled from RN notes): No MS Symptoms (Recalled from RN notes): No Functional Status (Recalled from RN notes): na - History of Present Illness Provider Complaint: She c/o sore throat, chilling and feeling very bad since yesterday. - Related Data Home Medications Medication Instructions Recorded Confirmed bupropion HCl 150 mg 24 hr tablet, 150 mg PO DAILY 07/23/20 02/22/21 extended release Previous Rx's Medication Instructions Recorded albuterol sulfate 90 mcg/actuation 2 puff INHALATION Q4-6H PRN #6.7 g 07/23/20 aerosol inhaler ondansetron 8 mg disintegrating 8 mg PO Q8H PRN 5 Days #20 tab 01/10/21 tablet Amoxicillin [Amoxicillin 500mg Tab] 500 mg PO TID 10 Days #30 tab 03/13/21 Ondansetron [Zofran 4mg ODT] 4 mg PO Q8HP PRN #12 tab.rapdis 03/13/21 methylPREDNISolone [Medrol] 4 mg PO DIRECTED 6 Days #21 03/13/21 tab.ds.pk Allergies Allergy/AdvReac Type Severity Reaction Status Date / Time No Known Allergies Allergy Verified 03/13/21 10:35 - Worker's Comp Is this a Worker's Comp case?: No [facility] History - Hepatitis A Screen Drug use history?: No High risk sexual behaviors?: No
[2021-03-13 11:05] VITALS: BP 119/74; PULSE 91; RESP 16; TEMP 36.9
[2021-03-13 11:15] LABS: UTC Pregnancy Test, Urine Negative (Negative)
== END 2021-03-13 11:12 | disposition home or self-care (01) ==
PROVIDERS: Emergency Provider Nurse Practitioner Family; PCP Physician Assistant
DX: J02.0 Streptococcal pharyngitis (principal); F90.9 Attention-deficit hyperactivity disorder, unspecified type; I10 Essential (primary) hypertension; E78.5 Hyperlipidemia, unspecified; K21.9 Gastro-esophageal reflux disease without esophagitis; J45.909 Unspecified asthma, uncomplicated; F17.210 Nicotine dependence, cigarettes, uncomplicated; Z79.899 Other long term (current) drug therapy
CPT/HCPCS: 81025; 87880; 96372; 99202; G0463

== ENCOUNTER 2021-03-18 13:52 | Emergency (ER) | payer BC, SELFPAY ==
[2021-03-18 13:55] VITALS: BP 136/84; PULSE 78; RESP 18; TEMP 37.1; O2SAT 96; BMI 43.2
[2021-03-18 14:21] LABS: Apearance,Urine Clear (Clear); Bilirubin,Urine Negative (Negative); Blood, Urine Negative (Negative); Color,Urine Yellow (Yellow); Glucose,Urine (UA) Negative (Negative); Ketones,Urine Negative (Negative); PH,Urine 5.5 (5.0-8.5); Protein,Urine Negative (Negative); Specific Gravity, Urine >= 1.030 (1.005-1.030); UTC Leukocyte Esterase,Urine Negative (Negative); UTC Nitrate,Urine Negative (Negative); UTC Pregnancy Test, Urine Negative (Negative); Urobilinogen,Urine 0.2 EU/dl (0.2)
--- NOTE | 2021-03-18 14:37 | HMH.EDUTC ---
[facility] [place] Clinical Impression: Vaginal yeast infection Disposition: Home, Self-Care Condition on Discharge: Good Instructions: Vaginal Yeast Infection, DI for Vaginal Yeast Infection, Fluconazole Additional Instructions: Take medication as directed Follow up with OBGYN as scheduled Follow up with your Family Doctor if needed Return if needed Straight to ER If any life threatening symptoms Prescriptions: Fluconazole [Diflucan 150mg tab] 150 mg PO DIRECTED #2 tab Transmission Status: Pending to [facility] Referrals: Edith Perea PA [Primary Care Provider] - As needed Time of Disposition: 14:40 Medical Decision Making - Miller Inquiry Pt receiving controlled substance: No Miller was queried for this patient: No Vital Signs: 03/18/21 13:55 Temperature 98.7 F Temperature Source Oral Pulse Rate [Right Brachial] 78 Respiratory Rate 18 Blood Pressure [Right Arm] 136/84 Blood Pressure Mean [Right Arm] 101 Blood Pressure Source [Right Arm] Automatic Cuff Blood Pressure Position [Right Arm] Sitting 02 Sat by Pulse Oximetry 96 Oxygen Delivery Method Room Air - Lab Data Lab results reviewed: Yes: I reviewed the patient's lab results. Lab Results 03/18/21 14:20: Urine Color Yellow, Urine Appearance Clear, Urine pH 5.5, Ur Specific [place] >= 1.030, Urine Protein Negative, Urine Glucose (UA) Negative, Urine Ketones Negative, Urine Blood Negative, Urine Nitrate Negative, Urine Bilirubin Negative, Urine Urobilinogen 0.2, Ur Leukocyte Esterase Negative, Tst Clinic Negative [facility] [place] HPI - General Stated complaint: possible yeast infection Time Seen by Provider: 03/18/21 14:37 Mode of Arrival: Ambulatory Source of Information: Patient Limitations: No Limitations Description of Symptoms (Recalled from Triage Doc. by RN): PATIENT C/O YEAST INFECTION. STATES SHE WAS RECENTLY ON AMOXICILLIN FOR STREP. SHE ALSO REPORTS CRAMPING AND SWOLLEN BREAST X 3 WEEKS WITH NO PERIOD HEENT Symptoms (Recalled from RN notes): No Resp Symptoms (Recalled from RN notes): No Skin Symptoms (Recalled from RN notes): No MS Symptoms (Recalled from RN notes): No Functional Status (Recalled from RN notes): WNL - History of Present Illness Provider Complaint: Patient states that she was recently on Amoxicillin and thinks she has a yeast infection States that she has been having some itching and burning with discharge like she had before with yeast infection States that she has been having sore breasts and not had a period and wanted to get checked for - Related Data Home Medications Medication Instructions Recorded Confirmed bupropion HCl 150 mg 24 hr tablet, 150 mg PO DAILY 07/23/20 02/22/21 extended release Previous Rx's Medication Instructions Recorded albuterol sulfate 90 mcg/actuation 2 puff INHALATION Q4-6H PRN #6.7 g 07/23/20 aerosol inhaler ondansetron 8 mg disintegrating 8 mg PO Q8H PRN 5 Days #20 tab 01/10/21 tablet Amoxicillin [Amoxicillin 500mg Tab] 500 mg PO TID 10 Days #30 tab 03/13/21 Ondansetron [Zofran 4mg ODT] 4 mg PO Q8HP PRN #12 tab.rapdis 03/13/21 methylPREDNISolone [Medrol] 4 mg PO DIRECTED 6 Days #21 03/13/21 tab.ds.pk Fluconazole [Diflucan 150mg tab] 150 mg PO DIRECTED #2 tab 03/18/21 Allergies Allergy/AdvReac Type Severity Reaction Status Date / Time No Known Allergies Allergy Verified 03/13/21 10:35 - Worker's Comp Is this a Worker's Comp case?: No [facility] History - Hepatitis A Screen Drug use history?: No High risk sexual behaviors?: No History of sexually transmitted infection?: No Currently employed?: No Childcare worker?: No Do you have indoor plumbing?: Yes Do you have electricity?: Yes Attestation statement:: This patient has been screened for Hepatitis A risk factors. I have reviewed the patient's past medical history: Yes Medical History: Reports:: Asthma, Cancer (CERVICAL), Depression, Gastroesophageal
[2021-03-18 14:42] VITALS: BP 136/84; PULSE 78; RESP 18; TEMP 37.1; O2SAT 96
== END 2021-03-18 14:47 | disposition home or self-care (01) ==
PROVIDERS: Emergency Provider Nurse Practitioner; PCP Physician Assistant
DX: B37.3 Candidiasis of vulva and vagina (principal); K21.9 Gastro-esophageal reflux disease without esophagitis; E78.5 Hyperlipidemia, unspecified; I10 Essential (primary) hypertension; G43.709 Chronic migraine without aura, not intractable, without status migrainosus; E03.9 Hypothyroidism, unspecified; F17.210 Nicotine dependence, cigarettes, uncomplicated; Z79.899 Other long term (current) drug therapy
CPT/HCPCS: 81003; 81025; 99202; G0463

== ENCOUNTER 2022-04-06 10:59 | Emergency (ER) | payer BC, SELFPAY ==
[2022-04-06 11:00] VITALS: BP 129/83; PULSE 83; RESP 18; TEMP 36.6; O2SAT 98; BMI 38.5
--- NOTE | 2022-04-06 12:16 | HMH.EDUTC ---
[facility] [place] Disposition Clinical Impression: Viral syndrome Disposition: Home, Self-Care Condition on Discharge: Good Instructions: DI for Viral Syndrome Additional Instructions: Drink extra fluids with and between meals. If you have difficulty drinking, try very small amounts of water or suck on ice chips. ? Avoid fruit juices, as these do not replace minerals and can actually increase diarrhea. ? Children and adults can use sports drinks to replenish electrolytes. Younger children and infants should use products formulated for children, like oral rehydration solutions. ? Eat food in small amounts and let your stomach recover. ? Get lots of rest. You may feel tired or weak. ? No greasy or fried foods for the next 24-48 hours BRAT diet Bananas Rice Apples and Verdigre ? Make sure to drink plenty of liquids ? Return if needed ? Straight to ER if any life threatening symptoms ? Zofran as prescribed ? You was given an outpatient order for diarrhea panel, please collect specimen and bring back to outpatient lab then call back to the [facility] or follow up with family doctor for results ? Follow up with family doctor in the next 48-72 hours if no improvement or any worsening of symptoms You were tested for today for COVID19 your test result should be back in the next 24-48 hours, you may check your results on the [facility] My Health portal Make sure to take your Vitamins Vit. C Vit D and Zinc if you can take them Prescriptions: Ondansetron [Zofran 4mg ODT] 4 mg PO TIDP PRN #6 tab PRN Reason: Nausea Transmission Status: Pending to [facility] Referrals: Edith Perea PA [Primary Care Provider] - As needed Forms: Work/School Release Time of Disposition: 12:26 Medical Decision Making - Miller Inquiry Pt receiving controlled substance: No Miller was queried for this patient: No Vital Signs: 04/06/22 11:00 Temperature 97.9 F Temperature Source Oral Pulse Rate [Radial] 83 Respiratory Rate 18 Blood Pressure [Right Arm] 129/83 Blood Pressure Mean [Right Arm] 98 Blood Pressure Source [Right Arm] Automatic Cuff 02 Sat by Pulse Oximetry 98 Orders (Tests/Meds): ORDERS Category Date Time Status Covid-19 Nasal PCR ([facility]) Routine Lab 04/06/22 11:58 Received Medical Decision Narrative: Patient states that she just had surgery 3 weeks ago to reverse her tubal and just got cleared for sex denies chance of [facility] [place] HPI - General Stated complaint: vomiting, diarrhea, belly pains Time Seen by Provider: 04/06/22 12:16 Mode of Arrival: Ambulatory Source of Information: Patient Limitations: No Limitations Description of Symptoms (Recalled from Triage Doc. by RN): EXPOSED TO COVID. DIARRHEA AND STOMACHACHE, EMESIS X2. HEENT Symptoms (Recalled from RN notes): No Resp Symptoms (Recalled from RN notes): No Skin Symptoms (Recalled from RN notes): No MS Symptoms (Recalled from RN notes): No Functional Status (Recalled from RN notes): N/A - History of Present Illness Provider Complaint: Patient states that she was recently exposed to someone that was COVID + State that she has been having body aches, chills, nausea and vomited x 2 yesterday and diarrhea States that today she was unable to go to work due to the diarrhea so she came in to get tested for COVID and checked out - Related Data Home Medications Medication Instructions Recorded Confirmed bupropion HCl 150 mg 24 hr tablet, 150 mg PO DAILY 07/23/20 02/22/21 extended release Previous Rx's Medication Instructions Recorded albuterol sulfate 90 mcg/actuation 2 puff INHALATION Q4-6H PRN #6.7 g 07/23/20 aerosol inhaler ondansetron 8 mg disintegrating 8 mg PO Q8H PRN 5 Days #20 tab 01/10/21 tablet Amoxicillin [Amoxicillin 500mg Tab] 500 mg PO TID 10 Days #30 tab 03/13/21 Ondansetron [Zofran 4mg ODT] 4 mg PO Q8HP PRN #12 tab.rapdis 03/13/21 methylPREDNISolone [Medrol] 4 mg PO DIRECTED 6 Days #21 03/13/21 tab.ds.pk Fluconazole [Diflucan
[2022-04-06 12:33] VITALS: BP 129/83; PULSE 83; RESP 18; TEMP 36.6; O2SAT 99
== END 2022-04-06 12:34 | disposition home or self-care (01) ==
PROVIDERS: Emergency Provider Nurse Practitioner; PCP Physician Assistant
DX: U07.1 COVID-19 (principal)
CPT/HCPCS: 99212; C9803; G0463; U0003; U0005

== ENCOUNTER → 2022-04-11 11:37 | Outpatient (CLI) | payer BC, SELFPAY ==
--- NOTE | 2022-04-11 11:42 | XR_ITS ---
FINAL REPORT CLINICAL HISTORY: covid 04/06, [facility] COMPARISON: 05/06/2017 FINDINGS: Two views of the chest were obtained. The heart size and pulmonary vascularity are within normal limits. The mediastinum is normal. No acute pulmonary abnormality is identified. There is no pneumothorax. The bony thorax is intact. IMPRESSION: No active cardiopulmonary disease. Reviewed, Interpreted and Dictated by Sav Bellamy III, MD Transcribed by Nancy Wren Authenticated and [facility]
== END ==
PROVIDERS: PCP Physician Assistant; Visit Provider Physician Assistant
DX: R06.00 Dyspnea, unspecified (principal)
CPT/HCPCS: 71046

== ENCOUNTER 2022-07-17 16:00 | Emergency (ER) | payer BC, SELFPAY ==
--- NOTE | 2022-07-17 17:12 | HMH.EDGENADL ---
Discharge Plan Disposition Patient Disposition: Home, Self-Care Condition: Good Prescriptions Prescriptions: New amoxicillin-pot clavulanate 875-125 mg tablet 1 tab PO Q12H Qty: 20 0RF No Action bupropion HCl [Wellbutrin XL] 150 mg tablet extended release 24 hr 150 mg PO DAILY albuterol sulfate 90 mcg/actuation HFA aerosol inhaler 2 puff INHALATION Q4-6H PRN (Reason: shortness of breath or wheezing) Qty: 6.7 0RF ondansetron 8 mg tablet,disintegrating 8 mg PO Q8H PRN (Reason: nausea and vomiting) 5 Days Qty: 20 0RF fluconazole 150 MG tablet 150 mg PO DIRECTED Qty: 2 0RF Rx Instructions: Take one tablet now and may repeat in 72 hours if still having symptoms ondansetron 4 MG tablet,disintegrating 4 mg PO TIDP PRN (Reason: Nausea) Qty: 6 0RF amoxicillin 500 MG tablet 500 mg PO TID 10 Days Qty: 30 0RF methylprednisolone 4 MG tablets,dose pack 4 mg PO DIRECTED 6 Days Qty: 21 0RF ondansetron 4 MG tablet,disintegrating 4 mg PO Q8HP PRN (Reason: Nausea) Qty: 12 0RF Referrals Follow up/Referrals: Edith Perea PA [Primary Care Provider] - See instructions Clinical Impressions Clinical Impression: Acute otitis media Instructions Patient Instructions: Middle Ear Infections (Alternative Therapy), Middle Ear Infection, Amoxicillin and Clavulanic Acid Discharge ED Provider: Chip Yates Adult HPI General Stated complaint: L ear pain sore throat,cough Time Seen by Provider: 07/17/22 16:44 History of Present Illness HPI narrative: 32-year-old female presents with left ear pain, sore throat onset approximately 3 days ago, just been taking [id number] treatments since then, states ear pain is markedly worse worse with movement or states even when she burped earlier she felt severe sharp pain in the ear. Denies fevers, chills, nausea, vomiting, cough or difficulty breathing or any other symptoms. Related Data Home Medications Medication Instructions Recorded Confirmed bupropion HCl 150 mg 24 hr tablet, 150 mg PO DAILY Anxiety 07/23/20 02/22/21 extended release (Wellbutrin XL) Previous Rx's Medication Instructions Recorded albuterol sulfate 90 mcg/actuation 2 puff inhalation Q4-6H PRN 07/23/20 aerosol inhaler shortness of breath or wheezing #6.7 grams ondansetron 8 mg disintegrating 8 mg PO Q8H PRN nausea and 01/10/21 tablet vomiting 5 days #20 tabs amoxicillin 500 mg tablet 500 mg PO TID 10 days #30 tabs 03/13/21 methylprednisolone 4 mg tablets in 4 mg PO DIRECTED 6 days ##21 03/13/21 a dose pack ondansetron 4 mg disintegrating 4 mg PO Q8HP PRN Nausea ##12 03/13/21 tablet fluconazole 150 mg tablet 150 mg PO DIRECTED #2 tabs 03/18/21 ondansetron 4 mg disintegrating 4 mg PO TIDP PRN Nausea #6 tabs 04/06/22 tablet amoxicillin 875 mg-potassium 1 tab PO Q12H #20 tabs 07/17/22 clavulanate 125 mg tablet Allergies Allergy/AdvReac Type Severity Reaction Status Date / Time No Known Allergies Allergy Verified 03/13/21 10:35 [facility] Medical History Attention Deficit Hyperactivity Disorder (ADHD) Social History Smoking Status: Current every day smoker tobacco type: cigarettes packs per day: 1 second hand exposure: Yes alcohol intake: never substance use type: marijuana current occupational status: other Travel in the last 8 weeks: None household members: none housing: house current occupational exposures/hazards: No caffeine: Yes ROS Obtained: Yes Systems reviewed as appropriate & no additional complaints except as documented Constitutional Constitutional: Reports system reviewed and no additional complaints, except as documented Eyes Eyes: Reports system reviewed and no additional complaints, except as documented ENT Ears, Nose, Mouth, and Throat: Reports system reviewed and n
[2022-07-17 17:41] VITALS: BP 160/98; PULSE 74; RESP 16; TEMP 36.8; O2SAT 98
== END 2022-07-17 17:42 | disposition home or self-care (01) ==
LOC: UTC 16:06 → ER 16:32
PROVIDERS: Emergency Provider Emergency Medicine; PCP Physician Assistant
DX: H66.90 Otitis media, unspecified, unspecified ear (principal)
CPT/HCPCS: 99283

== ENCOUNTER 2022-09-18 08:53 | Emergency (ER) | payer BC, SELFPAY ==
[2022-09-18 08:54] VITALS: BP 152/95; PULSE 79; RESP 19; TEMP 36.9; O2SAT 99; BMI 41.8
--- NOTE | 2022-09-18 09:07 | EXP.UTC ---
Discharge Plan Disposition Patient Disposition: Home, Self-Care Condition: Good Prescriptions Prescriptions: New cyclobenzaprine 10 mg Tablet 10 mg PO BID PRN (Reason: Muscle Spasm) Qty: 20 0RF methylprednisolone 4 mg Tablets,Dose Pack 4 mg PO DIRECTED Qty: 21 0RF No Action albuterol sulfate 90 mcg/actuation HFA aerosol inhaler 2 puff INHALATION Q4-6H PRN (Reason: shortness of breath or wheezing) Qty: 6.7 0RF azithromycin [Zithromax Z-Tomas] 250 mg tablet See Rx Instructions PO .COMPLEX Qty: 6 0RF Rx Instructions: For 250 mg dose pack: take 500 mg today (day 1), then 250 mg for 4 days (days 2-5) PO fluticasone propionate 50 mcg/actuation spray,suspension 1 spray intranasal DAILY Qty: 16 0RF Rx Instructions: administer into each nostril fexofenadine-pseudoephedrine 60-120 mg tablet extended release 12 hr 1 tab PO Q12H PRN (Reason: sinus symptoms) Qty: 30 0RF Referrals Follow up/Referrals: Edith Perea PA [Primary Care Provider] - See instructions Activity Restrictions/Add. Instructions Additional Instructions/Restrictions: Go home and rest. It would be best if you rested tomorrow too. No heavy lifting. No twisting. Take the oral medications as directed. The muscle relaxer (cyclobenzaprine--Flexeril) will make you drowsy, so don't drive or operate heavy machinery after taking it. Don't start the oral steroids (medrol dose pack) until tomorrow, since you had the shots in here today. Follow up with your regular doctor. GO TO THE ER FOR ANY WORSENING SYMPTOMS OR CONCERN, ESPECIALLY BOWEL OR BLADDER ISSUES, SADDLE AREA NUMBNESS, FEVER, ETC Clinical Impressions Clinical Impression: Torticollis Instructions Patient Instructions: Torticollis, DI for Torticollis, Methylprednisolone Injection, Ketorolac Injection Discharge ED Provider: Gabriel Briggs [facility] General Stated complaint: No accident,Neck Pain Time Seen by Provider: 09/18/22 09:07 History of Present Illness Provider Complaint: She c/o neck pain for the past 2 days. She denies any known injury, fall, mva, etc. She states that she woke up with these symptoms and then they have progressively worsened since then. Related Data Previous Rx's Medication Instructions Recorded albuterol sulfate 90 mcg/actuation 2 puff inhalation Q4-6H PRN 07/23/20 aerosol inhaler shortness of breath or wheezing #6.7 grams azithromycin 250 mg tablet See Rx Instructions PO .COMPLEX #6 08/10/22 (Zithromax Z-Tomas) tabs fexofenadine 60 mg-pseudoephedrine 1 tab PO Q12H PRN sinus symptoms 08/10/22 ER 120 mg tablet,ext.release,12 hr #30 tabs fluticasone propionate 50 1 spray intranasal DAILY #16 grams 08/10/22 mcg/actuation nasal spray,suspension cyclobenzaprine 10 mg tablet 10 mg PO BID PRN Muscle Spasm #20 09/18/22 tabs methylprednisolone 4 mg tablets in 4 mg PO DIRECTED #21 tabs 09/18/22 a dose pack Allergies Allergy/AdvReac Type Severity Reaction Status Date / Time amoxicillin AdvReac yeast Verified 08/10/22 14:34 infection [facility] Disclaimer: The information contained in this section may have been updated after the patient was seen, as this information can be updated by other users. Medical History Attention Deficit Hyperactivity Disorder (ADHD) Social History Smoking Status: Current every day smoker tobacco type: cigarettes packs per day: 1 second hand exposure: Yes alcohol intake: never substance use type: marijuana current occupational status: other Travel in the last 8 weeks: None household members: none housing: house current occupational exposures/hazards: No caffeine: Yes ROS Obtained: Yes All systems reviewed & no additional complaints except as documented Constitutional Constitutional: Denies chills and Denies fever(s) Eyes Eyes: Roland
[2022-09-18 09:59] VITALS: BP 152/95; PULSE 78; RESP 19; TEMP 36.9; O2SAT 99
== END 2022-09-18 09:59 | disposition home or self-care (01) ==
PROVIDERS: Emergency Provider Nurse Practitioner Family; PCP Physician Assistant
DX: M43.6 Torticollis (principal)
CPT/HCPCS: 96372; 99212; 99213; G0463

== ENCOUNTER → 2023-05-03 15:55 | Outpatient (CLI) | payer BC, SELFPAY ==
[2023-05-03 13:46] LABS: Basophils # 0.1 K/mm3 (0-0.2); Basophils % 0.5 % (0.1-2.0); Eosinophils # 0.2 K/mm3 (0.0-0.4); Eosinophils % 2.6 % (0.1-12.0); Hematocrit 45.5 % (37.0-47.0); Hemoglobin 15.2 g/dL (12.2-16.2); Lymphocytes # 2.5 K/mm3 (0.7-4.5); Lymphocytes % 27.5 % (10-50); Mean Corpuscular HGB Conc 33.3 g/dL (31.8-35.4); Mean Corpuscular Hemoglobin 31.4 pg (27.0-31.2); Mean Corpuscular Volume 94.2 fl (81-99); Mean Platelet Volume 9.6 fl (7.4-10.4); Monocytes # 0.6 K/mm3 (0.1-1.0); Monocytes % 6.1 % (1.7-9.3); Neutrophils # 5.8 K/mm3 (1.8-7.8); Neutrophils % 63.3 % (37.0-80.0); Platelet Count 251 K/mm3 (142-424); Red Blood Count 4.83 M/mm3 (4.20-5.40); Red Cell Distribution Width 13.5 % (11.5-17.5); White Blood Count 9.2 K/mm3 (4.8-10.8)
[2023-05-03 14:11] LABS: Erythrocyte Sedimentation Rate 15 mm/hr (0-20)
[2023-05-03 15:21] LABS: Alanine Aminotransferase 28 U/L (12-78); Albumin Level 4.1 g/dl (3.5-5.0); Albumin/Globulin Ratio 1.5 (1.1-1.8); Alkaline Phosphatase 94 U/L (38-126); Anion Gap 16.5 mEq/L (5-15); Aspartate Amino Transferase 24 U/L (14-36); Blood Urea Nitrogen 11 mg/dl (7-17); Calcium 8.9 mg/dl (8.4-10.2); Carbon Dioxide 22 mmol/L (22.0-30.0); Chloride 106 mmol/L (98-107); Chol/HDL Ratio 4.7 (1-3.5); Cholesterol 179 mg/dl (140-200); Estimated Glomerular Filt Rate 117 ml/min (>60); GFR (African American) 141 ML/MIN (>60); Globulin 2.7 g/dL (1.3-3.2); Glucose 85 mg/dl (74-100); HDL Cholesterol 38 mg/dl (40-60); Potassium 4.5 mmoL/L (3.5-5.1); Sodium 140 mmol/L (136-145); Total Protein,Serum 6.8 g/dl (6.3-8.2); Triglycerides 232 mg/dl (30-150); VLDL Cholesterol 46 mg/dL (0-40)
[2023-05-03 15:22] LABS: Bilirubin,Total 0.1 mg/dl (0.2-1.3)
[2023-05-03 15:32] LABS: C-Reactive Protein 1.7 mg/L (0-4); Direct LDL Cholesterol 104.83 mg/dL (100-129)
[2023-05-03 15:53] LABS: Thyroid Stimulating Hormone 1.84 uIU/mL (0.465-4.68)
[2023-05-03 16:16] LABS: 25-OH Vitamin D, Total 42.8 ng/mL (30-100)
== END ==
PROVIDERS: PCP Nurse Practitioner Family; Visit Provider Nurse Practitioner Family
DX: M43.6 Torticollis (principal); E66.01 Morbid (severe) obesity due to excess calories; Z68.41 Body mass index [BMI] 40.0-44.9, adult; Z79.899 Other long term (current) drug therapy
CPT/HCPCS: 80053; 80061; 82306; 84443; 85025; 85651; 86140

== ENCOUNTER 2023-06-08 09:51 | Emergency (ER) | payer BC, SELFPAY ==
[2023-06-08 09:52] VITALS: BP 155/90; PULSE 110; RESP 18; TEMP 36.8; O2SAT 100; BMI 43.2
[2023-06-08 10:01] VITALS: BP 147/96; PULSE 99; O2SAT 100
--- NOTE | 2023-06-08 10:08 | HMH.EDGENADL ---
Discharge Plan Disposition Patient Disposition: Home, Self-Care Condition: Good Prescriptions Prescriptions: New hydroxyzine HCl 25 mg tablet 25 mg PO Q8H PRN (Reason: anxiety) Qty: 20 0RF No Action albuterol sulfate 90 mcg/actuation HFA aerosol inhaler 2 puff INHALATION Q4-6H PRN (Reason: shortness of breath or wheezing) Qty: 6.7 0RF naproxen 500 mg tablet 500 mg PO BID Qty: 30 0RF Vraylar 1.5 mg capsule 1.5 mg PO DAILY Qty: 30 2RF Referrals Follow up/Referrals: Edith Perea PA [Primary Care Provider] - See instructions Activity Restrictions/Add. Instructions Additional Instructions/Restrictions: You were evaluated in the emergency department today. It is important that you follow-up with neurology as instructed by your primary care provider. Also follow-up closely with your primary care provider. Return to the emergency department for any new or worsening symptoms. Clinical Impressions Clinical Impression: Paresthesias, Anxiety Instructions Patient Instructions: DI for Anxiety -- Adult, DI for Numbness/Tingling Discharge ED Provider: Maribel Olmos General Adult HPI General Chief complaint: PAIN Stated complaint: hands/feet swollen, pain Time Seen by Provider: 06/08/23 10:03 Mode of Arrival: Ambulatory Source of Information: Patient Limitations: No Limitations Description of Symptoms (Recalled from ER Triage Doc. by RN): c/o hands and feet swelling with pens and needle feelings. States the pain shoots from her fingers to her shoulders and then from her feet up, has been happening for the last 2 years with the pain getting worse in the last 6 months and this morning the pain got so bad. She was to see a neurologist but missed her opal due to class. History of Present Illness HPI narrative: This patient is a 33-year-old female with a history of obesity, hypothyroidism, and vitamin D deficiency presenting to the emergency department for evaluation with concern for pins and needle sensation in her bilateral upper and lower extremities, shooting pain associated with this, and a sense of generalized body edema that she notes has been going on for approximately 2 years now. She states she has been seen once by her primary care provider for this, who referred her to neurology. She was not able to follow-up with neurology, as she started school and had a class that day. she thought it would go away, however her symptoms have persisted. She does note that she has been under a lot of stress lately. She denies any other concerns, such as fevers, cough, congestion, abdominal pain, vomiting, or other issues. Related Data Previous Rx's Medication Instructions Recorded albuterol sulfate 90 mcg/actuation 2 puff inhalation Q4-6H PRN 07/23/20 aerosol inhaler shortness of breath or wheezing #6.7 grams naproxen 500 mg tablet 500 mg PO BID #30 tabs 05/03/23 cariprazine 1.5 mg capsule 1.5 mg PO DAILY #30 caps 06/08/23 (Vraylar) hydroxyzine HCl 25 mg tablet 25 mg PO Q8H PRN anxiety #20 tabs 06/08/23 Allergies Allergy/AdvReac Type Severity Reaction Status Date / Time amoxicillin AdvReac yeast Verified 06/08/23 14:01 infection [facility] Disclaimer: The information contained in this section may have been updated after the patient was seen, as this information can be updated by other users. Medical History Attention Deficit Hyperactivity Disorder (ADHD) Social History Smoking Status: Current every day smoker tobacco type: cigarettes packs per day: 1 second hand exposure: Yes alcohol intake: never substance use type: marijuana current occupational status: other Travel in the last 8 weeks: None household members: none housing: house current occupational exposures/hazards: No caffeine: Yes ROS Obtained: Yes All systems reviewed & no additional compl
--- NOTE | 2023-06-08 10:19 | ECG_ITS ---
APPROVED REPORT Exam: Resting ECG HR:88 bpm ECG Measurements Heart Rate 88 AXES VT 158 P 63 QRSd 103 QRS 73 QT 366 T 37 QTc 411 Conclusion SINUS RHYTHM NORMAL ECG UNCONFIRMED REPORT Electronically signed by : Jason Hills MD 06/08/2023 12:06:35
[2023-06-08 10:25] LABS: VBG Base Excess -3.5 mmol/L (-2.4-2.3); VBG HCO3 21.6 mmol/L (23-30); VBG Oxygen Saturation 91.5 % (50-70); VBG PCO2 37.3 mmol/L (35-51); VBG PH 7.38 mmol/L (7.31-7.41); VBG PO2 57.5 mmol/L (28-40); VBG Total CO2 22.8 mmol/L (23-27)
[2023-06-08 10:28] LABS: Chloride 109 mmol/L (98-107); Potassium 4.3 mmoL/L (3.5-5.1); Sodium 139 mmol/L (136-145)
[2023-06-08 10:31] LABS: Alanine Aminotransferase 31 U/L (12-78); Albumin/Globulin Ratio 1.3 (1.1-1.8); Alkaline Phosphatase 85 U/L (38-126); Anion Gap 12.3 mEq/L (5-15); Aspartate Amino Transferase 24 U/L (14-36); Bilirubin,Total 0.3 mg/dl (0.2-1.3); Blood Urea Nitrogen 11 mg/dl (7-17); Calcium 8.8 mg/dl (8.4-10.2); Carbon Dioxide 22 mmol/L (22.0-30.0); Creatine Kinase 78 U/L (30-135); Creatinine Clearance Estimated 121 mL/min (50-200); Estimated Glomerular Filt Rate 116 ml/min (>60); GFR (African American) 140 ML/MIN (>60); Globulin 3.2 g/dL (1.3-3.2); Glucose 111 mg/dl (74-100); Total Protein,Serum 7.2 g/dl (6.3-8.2)
[2023-06-08 10:32] LABS: Basophils # 0.1 K/mm3 (0-0.2); Basophils % 0.7 % (0.1-2.0); Eosinophils # 0.3 K/mm3 (0.0-0.4); Eosinophils % 2.9 % (0.1-12.0); Hematocrit 47.4 % (37.0-47.0); Hemoglobin 15.8 g/dL (12.2-16.2); Lymphocytes # 2.7 K/mm3 (0.7-4.5); Lymphocytes % 28.3 % (10-50); Mean Corpuscular HGB Conc 33.2 g/dL (31.8-35.4); Mean Corpuscular Volume 93.3 fl (81-99); Mean Platelet Volume 8.9 fl (7.4-10.4); Monocytes # 0.6 K/mm3 (0.1-1.0); Monocytes % 5.7 % (1.7-9.3); Neutrophils # 5.9 K/mm3 (1.8-7.8); Neutrophils % 62.3 % (37.0-80.0); Platelet Count 270 K/mm3 (142-424); Red Blood Count 5.08 M/mm3 (4.20-5.40); Red Cell Distribution Width 13.1 % (11.5-17.5); White Blood Count 9.5 K/mm3 (4.8-10.8)
[2023-06-08 10:33] LABS: HCG Qualitative, Serum Negative (Negative)
[2023-06-08 10:36] LABS: Magnesium 1.8 mg/dl (1.6-2.3)
[2023-06-08 10:49] LABS: T4 (Thyroxine) 8.4 ug/dl (5.53-11.0)
[2023-06-08 11:00] VITALS: BP 129/64; PULSE 76; O2SAT 100
[2023-06-08 11:03] VITALS: BP 124/74; PULSE 80; O2SAT 100
[2023-06-08 11:03] LABS: Thyroid Stimulating Hormone 3.01 uIU/mL (0.465-4.68)
[2023-06-08 11:26] LABS: Vitamin B12 325 pg/mL (239-931)
--- NOTE | 2023-06-08 11:31 | PC.NURSE ---
pt walked to restroom no needs at this time,call light at bs
[2023-06-08 11:37] LABS: Microscopic, Urine URINE MICROSCOPIC (MICROSCOPIC)
[2023-06-08 11:46] LABS: Appearance,Urine CLEAR (Clear); Bilirubin,Urine Negative (Negative); Blood, Urine Negative (Negative); Color,Urine YELLOW (Yellow); Glucose,Urine (UA) Negative (Negative); Ketones,Urine Negative (Negative); Leukocyte Esterase,Urine Negative (Negative); Nitrate,Urine Negative (Negative); Protein,Urine Negative (Negative); Urobilinogen,Urine 0.2 EU/dl (0.2)
[2023-06-08 12:11] LABS: Bacteria,Urine Trace /lpf; Mucus,Urine Trace /lpf
[2023-06-08 12:42] VITALS: BP 124/74; PULSE 80; RESP 16; TEMP 36.7; O2SAT 99
== END 2023-06-08 12:41 | disposition home or self-care (01) ==
PROVIDERS: Emergency Provider Emergency Medicine; PCP Physician Assistant
DX: R20.2 Paresthesia of skin (principal); F41.9 Anxiety disorder, unspecified; R60.9 Edema, unspecified; E03.9 Hypothyroidism, unspecified; F90.9 Attention-deficit hyperactivity disorder, unspecified type; F17.210 Nicotine dependence, cigarettes, uncomplicated
CPT/HCPCS: 80053; 81001; 82550; 82607; 82803; 83735; 84436; 84443; 84703; 85025; 93005; 99285

== ENCOUNTER → 2023-06-15 21:36 | Outpatient (CLI) | payer BC, SELFPAY ==
[2023-06-15 15:16] LABS: Adenovirus,PCR Not Detected (NotDetected); Coronavirus 229E Not Detected (NotDetected); Coronavirus NL63 Not Detected (NotDetected); Coronavirus OC43 Not Detected (NotDetected); Coronovirus HKU1,PCR Not Detected (NotDetected); Human Metapneumovirus Not Detected (NotDetected); Influenza A, PCR Not Detected (NotDetected); Influenza AH1, 2009 Not Detected (NotDetected); Influenza AH1, PCR Not Detected (NotDetected); Influenza AH3,PCR Not Detected (NotDetected); Influenza B, PCR Not Detected (NotDetected); Parainfluenza 1, PCR Not Detected (NotDetected)
[2023-06-15 19:01] LABS: Coronavirus 19, PCR Not Detected (NotDetected); Parainfluenza 2, PCR Not Detected (NotDetected); Parainfluenza 3, PCR Not Detected (NotDetected); Parainfluenza 4, PCR Not Detected (NotDetected); Respiratory Syncytial Virus Not Detected (NotDetected); Rhinovirus/Enterovirus Detected (NotDetected)
== END ==
PROVIDERS: PCP Nurse Practitioner Family; Visit Provider Nurse Practitioner Family
DX: J02.9 Acute pharyngitis, unspecified (principal); B34.1 Enterovirus infection, unspecified; R09.89 Other specified symptoms and signs involving the circulatory and respiratory systems; R50.9 Fever, unspecified
CPT/HCPCS: 87632; 87635

== ENCOUNTER 2023-06-22 14:36 | Emergency (ER) | payer BC, SELFPAY ==
[2023-06-22 14:40] VITALS: BP 145/97; PULSE 98; RESP 17; TEMP 36.8; O2SAT 97; BMI 42.1
--- NOTE | 2023-06-22 14:43 | EXP.UTC ---
Discharge Plan Disposition Patient Disposition: Home, Self-Care Condition: Good Prescriptions Prescriptions: New hydrochlorothiazide 12.5 mg capsule 12.5 mg PO DAILY PRN (Reason: edema) Qty: 20 0RF No Action naproxen 500 mg tablet 500 mg PO BIDP PRN (Reason: Pain) Referrals Follow up/Referrals: Provider,Referral, MD [Primary Care Provider] - See instructions Activity Restrictions/Add. Instructions Additional Instructions/Restrictions: Take the medications as directed. Follow up with your regular doctor. GO TO THE ER FOR ANY WORSENING SYMPTOMS Clinical Impressions Clinical Impression: Dependent edema Stand Alone Forms Stand Alone Forms: Work/School Release Instructions Patient Instructions: DI for Dependent Edema, Hydrochlorothiazide Discharge ED Provider: Gabriel Briggs [facility] General Stated complaint: HANDS AND FEET ARE SWELLING Time Seen by Provider: 06/22/23 14:43 History of Present Illness Provider Complaint: She states that for the past 2 weeks she has had mild swelling of her bilateral hands and ankles. She denies other complaints. Related Data Home Medications Medication Instructions Recorded Confirmed naproxen 500 mg tablet 500 mg PO BIDP PRN Pain 06/22/23 06/22/23 Previous Rx's Medication Instructions Recorded hydrochlorothiazide 12.5 mg capsule 12.5 mg PO DAILY PRN edema #20 caps 06/22/23 Allergies Allergy/AdvReac Type Severity Reaction Status Date / Time amoxicillin AdvReac yeast Verified 06/15/23 10:07 infection [facility] Disclaimer: The information contained in this section may have been updated after the patient was seen, as this information can be updated by other users. Medical History (Updated 06/22/23 @ 15:11 by Gbariel Briggs APRN) Attention Deficit Hyperactivity Disorder (ADHD) Surgical History (Updated 06/22/23 @ 14:52 by Jen Gamez RN) History of cholecystectomy Social History Smoking Status: Current every day smoker tobacco type: cigarettes packs per day: 1 second hand exposure: Yes alcohol intake: never substance use type: marijuana current occupational status: other Travel in the last 8 weeks: None household members: none housing: house current occupational exposures/hazards: No caffeine: Yes ROS Obtained: Yes All systems reviewed & no additional complaints except as documented Constitutional Constitutional: Denies chills and Denies fever(s) Eyes Eyes: Denies eye discharge ENT Ears, Nose, Mouth, and Throat: Denies dizziness, Denies otalgia and Denies sore throat Cardiovascular Cardiovascular: Denies chest pain Respiratory Respiratory: Denies shortness of breath, Denies chest congestion, Denies cough, Denies stridor and Denies wheezing Gastrointestinal Gastrointestingal: Denies nausea or vomiting Musculoskeletal Musculoskeletal: Reports system reviewed and no additional complaints, except as documented and Denies arthralgias Integumentary/Breasts Skin/Breast: Denies rash Neurologic Neurologic: Denies dizziness and Denies paresthesias Allergic/Immunologic Allergic/Immunologic: Denies wheezing Physical Exam General General appearance: alert and in no apparent distress Head Head exam: atraumatic, normocephalic and normal inspection Eye Eye exam: Present normal appearance, PERRL and EOMI ENT ENT exam: Present normal exam, normal oropharynx, mucous membranes moist, TM's normal bilaterally and normal external ear exam Neck Neck exam: Present normal inspection, full ROM and trachea midline; Absent meningismus or lymphadenopathy Chest Chest inspection: Present normal inspection and symmetric chest wall rise; Absent tenderness Respiratory Respiratory exam: Present normal lung sounds bilaterally; Absent respiratory distress Cardiovascular Cardiovascular exam: Present regular rate and normal rhythm; Absent JVD Abdominal Exam Abdominal
[2023-06-22 15:13] VITALS: BP 145/97; PULSE 98; RESP 17; TEMP 36.8; O2SAT 97
== END 2023-06-22 15:15 | disposition home or self-care (01) ==
PROVIDERS: Emergency Provider Nurse Practitioner Family
DX: R60.9 Edema, unspecified (principal); F17.210 Nicotine dependence, cigarettes, uncomplicated; F90.9 Attention-deficit hyperactivity disorder, unspecified type
CPT/HCPCS: 99212; 99214; G0463

== ENCOUNTER 2023-06-25 21:16 | Emergency (ER) | payer BC, SELFPAY ==
--- NOTE | 2023-06-25 21:14 | ECG_ITS ---
APPROVED REPORT Exam: Resting ECG HR:103 bpm ECG Measurements Heart Rate 103 AXES ME 148 P 17 QRSd 102 QRS 18 QT 335 T 41 QTc 395 Conclusion SINUS TACHYCARDIA ABNORMAL RHYTHM ECG UNCONFIRMED REPORT Electronically signed by : Jason Hills MD 06/26/2023 19:24:47
[2023-06-25 21:16] VITALS: BP 159/107; PULSE 107; RESP 16; TEMP 37; O2SAT 100; BMI 43.2
[2023-06-25 21:19] VITALS: PULSE 107
--- NOTE | 2023-06-25 21:21 | XR_ITS ---
PROCEDURE INFORMATION: Exam: XR Chest Exam date and time: 06/25/2023 9:26 PM Age: 33 years old Clinical indication: Pain; Chest pressure; Additional info: Cp TECHNIQUE: Imaging protocol: Radiologic exam of the chest. Views: 2 views. COMPARISON: CR XR CHEST 2V 04/11/2022 11:41 AM FINDINGS: Lungs: Low lung volumes. Pulmonary vasculature grossly normal. No gross pulmonary infiltrates or edema pattern. Pleural spaces: No pleural effusion. No pneumothorax. Heart/Mediastinum: Heart size normal. No tracheal/mediastinal shift. Bones/joints: No acute osseous abnormalities are identified. IMPRESSION: No acute thoracic process.
[2023-06-25 21:28] LABS: Basophils # 0.1 K/mm3 (0-0.2); Basophils % 0.8 % (0.1-2.0); Eosinophils # 0.3 K/mm3 (0.0-0.4); Eosinophils % 2.3 % (0.1-12.0); Hematocrit 48.5 % (37.0-47.0); Hemoglobin 17.1 g/dL (12.2-16.2); Lymphocytes # 3.8 K/mm3 (0.7-4.5); Lymphocytes % 32.8 % (10-50); Mean Corpuscular HGB Conc 35.4 g/dL (31.8-35.4); Mean Corpuscular Hemoglobin 32.7 pg (27.0-31.2); Mean Corpuscular Volume 92.4 fl (81-99); Mean Platelet Volume 8.3 fl (7.4-10.4); Monocytes # 0.7 K/mm3 (0.1-1.0); Neutrophils # 6.8 K/mm3 (1.8-7.8); Neutrophils % 58.1 % (37.0-80.0); Platelet Count 281 K/mm3 (142-424); Red Blood Count 5.25 M/mm3 (4.20-5.40); Red Cell Distribution Width 13.1 % (11.5-17.5); White Blood Count 11.7 K/mm3 (4.8-10.8)
[2023-06-25 21:37] LABS: Alanine Aminotransferase 39 U/L (12-78); Albumin Level 4.7 g/dl (3.5-5.0); Albumin/Globulin Ratio 1.2 (1.1-1.8); Alkaline Phosphatase 77 U/L (38-126); Aspartate Amino Transferase 38 U/L (14-36); Bilirubin,Total 0.4 mg/dl (0.2-1.3); Blood Urea Nitrogen 17 mg/dl (7-17); Calcium 9.5 mg/dl (8.4-10.2); Carbon Dioxide 27 mmol/L (22.0-30.0); Chloride 104 mmol/L (98-107); Creatinine Clearance Estimated 121 mL/min (50-200); Estimated Glomerular Filt Rate 116 ml/min (>60); GFR (African American) 140 ML/MIN (>60); Globulin 3.8 g/dL (1.3-3.2); Glucose 98 mg/dl (74-100); Sodium 141 mmol/L (136-145); Total Protein,Serum 8.5 g/dl (6.3-8.2)
[2023-06-25 21:51] LABS: Troponin I < 0.01 ng/ml (0.00-0.034)
--- NOTE | 2023-06-25 22:02 | HMH.EDGENADL ---
Discharge Plan Disposition Patient Disposition: Home, Self-Care Chief Complaint: Chest Pain Prescriptions Prescriptions: No Action naproxen 500 mg tablet 500 mg PO BIDP PRN (Reason: Pain) hydrochlorothiazide 12.5 mg capsule 12.5 mg PO DAILY PRN (Reason: edema) Qty: 20 0RF Referrals Follow up/Referrals: Provider,Referral, [Primary Care Provider] - See instructions Activity Restrictions/Add. Instructions Additional Instructions/Restrictions: Call your family doctor to establish care for this visit to the emergency department and schedule follow-up within 48 hours to ensure improvement. If you have any worsening of your condition or any other concerning signs or symptoms, return to the emergency department or your primary care doctor for further evaluation. Continue taking meds as prescribed. Naproxen can cause your blood pressure to go up, so take it sparingly for pain. Clinical Impressions Clinical Impression: Chest pain, Anxiety, Hypertension Discharge ED Provider: Mirza Addison General Adult HPI General Chief complaint: Chest Pain Stated complaint: CP Time Seen by Provider: 06/25/23 21:23 Mode of Arrival: Ambulatory Source of Information: Patient Limitations: No Limitations Description of Symptoms (Recalled from ER Triage Doc. by RN): pt states she been having chest pain x one month and has been seen in er and utc. pt c/o stabbing chest pain radiating up to neck since 4 this afternoon History of Present Illness HPI narrative: 33-year-old female with history of hypertension and anxiety presenting with multiple complaints. Patient states that she has been seen multiple times by ER and primary care provider. Currently on hydrochlorothiazide as well as hydroxyzine as needed. States that today, she was cleaning the house and working on schoolwork when she had shortness of breath. Took her blood pressure, is 180/110, because of this came to the ER for further evaluation. Not currently symptomatic. Denies nausea or vomiting, syncope, diaphoresis or neurologic deficits. No other complaints at this time. Related Data Home Medications Medication Instructions Recorded Confirmed naproxen 500 mg tablet 500 mg PO BIDP PRN Pain 06/22/23 06/22/23 Previous Rx's Medication Instructions Recorded hydrochlorothiazide 12.5 mg capsule 12.5 mg PO DAILY PRN edema #20 caps 06/22/23 Allergies Allergy/AdvReac Type Severity Reaction Status Date / Time amoxicillin AdvReac yeast Verified 06/15/23 10:07 infection [facility] Disclaimer: The information contained in this section may have been updated after the patient was seen, as this information can be updated by other users. Medical History (Updated 06/25/23 @ 23:34 by Mirza Addison MD) Attention Deficit Hyperactivity Disorder (ADHD) Surgical History (Updated 06/22/23 @ 14:52 by Jen Gamez RN) History of cholecystectomy Social History Smoking Status: Current every day smoker tobacco type: cigarettes packs per day: 1 second hand exposure: Yes alcohol intake: never substance use type: marijuana current occupational status: other Travel in the last 8 weeks: None household members: none housing: house current occupational exposures/hazards: No caffeine: Yes ROS Obtained: Yes All systems reviewed & no additional complaints except as documented Physical Exam General General appearance: alert and in no apparent distress Head Head exam: atraumatic and normocephalic Eye Eye exam: Present normal appearance, PERRL and EOMI ENT ENT exam: Present mucous membranes moist Neck Neck exam: Present normal inspection, full ROM and trachea midline Respiratory Respiratory exam: Present normal lung sounds bilaterally; Absent respiratory distress, wheezes, stridor, accessory muscle use or prolonged expiratory phase Cardiovascular Cardiovascular exam: Present regular rate
[2023-06-25 23:40] VITALS: BP 138/75; PULSE 90; RESP 16; TEMP 37; O2SAT 100
== END 2023-06-25 23:43 | disposition home or self-care (01) ==
PROVIDERS: Emergency Provider Emergency Medicine
DX: R07.9 Chest pain, unspecified (principal); R00.0 Tachycardia, unspecified; I10 Essential (primary) hypertension; F41.9 Anxiety disorder, unspecified; F90.9 Attention-deficit hyperactivity disorder, unspecified type; F17.210 Nicotine dependence, cigarettes, uncomplicated
CPT/HCPCS: 71046; 80053; 84484; 85025; 93005; 99284

== ENCOUNTER 2023-08-13 13:19 | Emergency (ER) | payer BC, SELFPAY ==
[2023-08-13 14:00] VITALS: BP 135/98; PULSE 107; RESP 19; TEMP 37.8; O2SAT 98; BMI 44.5
[2023-08-13 14:17] LABS: UTC Strep Screen (Rapid) Positive (Negative)
--- NOTE | 2023-08-13 14:22 | EXP.UTC ---
Discharge Plan Disposition Patient Disposition: Home, Self-Care Condition: Good Prescriptions Prescriptions: New azithromycin [Zithromax Z-Tomas] 250 mg tablet See Rx Instructions .ROUTE .COMPLEX 5 Days Qty: 6 0RF Rx Instructions: For 250 mg dose pack: take 500 mg today (day 1), then 250 mg for 4 days (days 2-5) methylprednisolone [Medrol (Tomas)] 4 mg tablets,dose pack See Rx Instructions .Route .COMPLEX 6 Days Qty: 21 0RF Rx Instructions: taper pack; No Action hydrochlorothiazide 12.5 mg capsule 12.5 mg PO DAILY PRN (Reason: edema) Qty: 30 1RF hydroxyzine HCl 25 mg tablet 25 mg PO HS Qty: 60 2RF bupropion HCl 100 mg tablet sustained-release 12 hr See Rx Instructions .ROUTE .COMPLEX Qty: 90 0RF Dose Instruction: Take 1 tablet by mouth once daily Rx Instructions: Take 1 tablet by mouth once daily progesterone micronized 200 mg capsule 200 mg PO DAILY Patient Comments: TAKE 1 CAPSULE BY MOUTH ONCE DAILY FOR 10 DAYS Referrals Follow up/Referrals: Edith Perea PA [Primary Care Provider] - See instructions Activity Restrictions/Add. Instructions Additional Instructions/Restrictions: *Monitor Temp, Over the counter Motrin or Tylenol as directed/as needed Tylenol every 4 hours and Motrin every 6 hours (as long as your family doctor has told you that you can take it) for fever or pain. and straight to ER if unable to lower temp less than 101.0 after medication given *Warm salt water gargles may help to soothe the throat *Throat Lozenges? *Warm fluids like tea with honey may help to soothe the throat? *Sleep elevated *Humidifier/Vaporizer Take medication as prescribe Follow up IMMEDIATELY for new or worsening symptoms or no Noticeable improvement over the next 48-72 hours. 911 for difficulty breathing or swallowing Clinical Impressions Clinical Impression: Strep throat Stand Alone Forms Stand Alone Forms: Work/School Release Instructions Patient Instructions: Strep Throat, DI for Strep Throat Discharge ED Provider: Fifi Martinez [facility] General Stated complaint: SORE THROAT Mode of Arrival: Ambulatory Source of Information: Patient Limitations: No Limitations Time Seen by Provider: 08/13/23 14:22 Description of Symptoms (Recalled from Triage Doc. by RN): Sore throat, hurts to swallow, and fever HEENT Symptoms (Recalled from RN notes): Yes Resp Symptoms (Recalled from RN notes): No Skin Symptoms (Recalled from RN notes): No MS Symptoms (Recalled from RN notes): No Functional Status (Recalled from RN notes): n/a History of Present Illness Provider Complaint: Patient states that she has been having sore throat, pain with swallowing, fever and headache States that feels like it does when she gets strep throat so she came in to get checked Related Data Home Medications Medication Instructions Recorded Confirmed progesterone micronized 200 mg 200 mg PO DAILY 08/13/23 08/13/23 capsule Previous Rx's Medication Instructions Recorded hydrochlorothiazide 12.5 mg capsule 12.5 mg PO DAILY PRN edema #30 caps 07/05/23 hydroxyzine HCl 25 mg tablet 25 mg PO HS #60 tabs 07/05/23 bupropion HCl 100 mg tablet,12 hr See Rx Instructions .Route 07/26/23 sustained-release .COMPLEX #90 tabs azithromycin 250 mg tablet See Rx Instructions PO .COMPLEX 5 08/13/23 (Zithromax Z-Tomas) days #6 tabs methylprednisolone 4 mg tablets in See Rx Instructions .Route 08/13/23 a dose pack (Medrol (Tomas)) .COMPLEX 6 days #21 tabs Allergies Allergy/AdvReac Type Severity Reaction Status Date / Time amoxicillin AdvReac yeast Verified 08/13/23 14:06 infection Worker's Comp Is this a Worker's Comp case?: No [facility] Disclaimer: The information contained in this section may have been updated after the patient was seen, as this information can be updated by other users. Medical History (Updated 08/13/23
[2023-08-13 14:39] LABS: UTC Pregnancy Test, Urine Negative (Negative)
[2023-08-13 14:46] VITALS: BP 135/98; PULSE 107; RESP 18; TEMP 37.8; O2SAT 98
== END 2023-08-13 14:46 | disposition home or self-care (01) ==
PROVIDERS: Emergency Provider Nurse Practitioner; PCP Physician Assistant
DX: J02.0 Streptococcal pharyngitis (principal); R07.0 Pain in throat; R50.9 Fever, unspecified; R51.9 Headache, unspecified; F17.210 Nicotine dependence, cigarettes, uncomplicated
CPT/HCPCS: 81025; 87880; 99212; 99214; G0463

== ENCOUNTER 2023-11-13 08:30 | Emergency (ER) | payer BC, SELFPAY ==
--- NOTE | 2023-11-13 08:39 | ED_ITS ---
Discharge Plan Disposition Patient Disposition: Home, Self-Care Condition: Good Prescriptions Prescriptions: New azithromycin [Zithromax] 250 mg tablet 250 mg PO UD DOSE PK Qty: 6 0RF Rx Instructions: Take two (2) tablets today, then one (1) tablet days #2 thru #5 methylprednisolone 4 mg Tablets,Dose Pack 4 mg PO DIRECTED 6 Days Qty: 21 0RF Rx Instructions: Take 1 pack as directed for 6 days [id number] [Bromfed DM] 2-30-10 mg/5 mL Syrup 5 ml PO Q6H PRN (Reason: Cough) Qty: 240 0RF No Action hydroxyzine HCl 25 mg tablet 25 mg PO HS Qty: 60 2RF bupropion HCl 100 mg tablet sustained-release 12 hr See Rx Instructions .ROUTE .COMPLEX Qty: 90 0RF Dose Instruction: Take 1 tablet by mouth once daily Rx Instructions: Take 1 tablet by mouth once daily hydrochlorothiazide 12.5 mg capsule 12.5 mg PO DAILY PRN (Reason: edema) Qty: 90 1RF progesterone micronized 200 mg capsule 200 mg PO DAILY Patient Comments: TAKE 1 CAPSULE BY MOUTH ONCE DAILY FOR 10 DAYS Referrals Follow up/Referrals: Edith Perea PA [Primary Care Provider] - See instructions Activity Restrictions/Add. Instructions Additional Instructions/Restrictions: Drink plenty of fluids. Take tylenol or ibuprofen for pain or fever. Take the medications as directed. Follow up with your regular doctor. GO TO THE ER FOR ANY WORSENING SYMPTOMS Clinical Impressions Clinical Impression: Acute viral syndrome, Sinusitis Stand Alone Forms Stand Alone Forms: Work/School Release Discharge ED Provider: Gabriel Briggs [facility] General Stated complaint: flu symptoms Time Seen by Provider: 11/13/23 08:38 History of Present Illness Provider Complaint: She states that for the past 2 days she has had fever, chills, malaise, sinus congestion, and cough. Related Data Home Medications Medication Instructions Recorded Confirmed progesterone micronized 200 mg 200 mg PO DAILY 08/13/23 11/13/23 capsule Previous Rx's Medication Instructions Recorded hydroxyzine HCl 25 mg tablet 25 mg PO HS #60 tabs 07/05/23 bupropion HCl 100 mg tablet,12 hr See Rx Instructions .Route 07/26/23 sustained-release .COMPLEX #90 tabs hydrochlorothiazide 12.5 mg capsule 12.5 mg PO DAILY PRN edema #90 caps 09/19/23 azithromycin 250 mg tablet 250 mg PO UD DOSE PK #6 tabs 11/13/23 (Zithromax) [id number] 5 ml PO Q6H PRN Cough #240 mL 11/13/23 2 mg-30 mg-10 mg/5 mL oral syrup (Bromfed DM) methylprednisolone 4 mg tablets in 4 mg PO DIRECTED 6 days #21 tabs 11/13/23 a dose pack Allergies Allergy/AdvReac Type Severity Reaction Status Date / Time amoxicillin AdvReac yeast Verified 11/13/23 08:51 infection [facility] Disclaimer: The information contained in this section may have been updated after the patient was seen, as this information can be updated by other users. Medical History (Updated 11/13/23 @ 09:28 by Gabriel Briggs APRN) Attention Deficit Hyperactivity Disorder (ADHD) Cannabis use disorder, severe, dependence Chronic post-traumatic stress disorder (PTSD) Generalized anxiety disorder with panic attacks MDD (major depressive disorder), recurrent, with melancholic features Surgical History History of cholecystectomy Social History Smoking Status: Current every day smoker tobacco type: cigarettes packs per day: 1 second hand exposure: Yes alcohol intake: never substance use type: marijuana (Paola smokes about 2 to 3 blunts per day everyday.) current occupational status: employed and student Travel in the last 8 weeks: None household members: none housing: house number of children: 0 current occupational exposures/hazards: No caffeine: Yes ROS Obtained: Yes All systems reviewed & no additional complaints except as documented Constitutional Constitutional: Reports chills and Reports fever(s) Eyes Eyes: Denies eye discharge ENT Ears, Nose, Mouth, and Throat: Reports as per HPI Cardiovascular Cardiovascular: Denies chest pain Respiratory Respiratory: Denies chest congestion and Reports cough Gastrointestinal Gastrointestingal: Reports nausea; Denies abdominal pain, constipation, cramping, diarrhea or vomiting Musculoskeletal Musculoskeletal: Denies arthralgias Integumentary/Breasts Skin/Breast: Denies rash Neurologic Neurologic: Denies paresthesias Physical Exam General General appearance: alert and in no apparent distress Eye Eye exam: Present normal appearance, PERRL and EOMI ENT ENT exam: Present mucous membranes moist and normal external ear exam Expanded ENT Exam External ear exam: Present normal external inspection TM/Canal exam: Bilateral TM: erythema and bulging Nose exam: Absent sinus tenderness Nasal speculum exam: Bilateral: normal Mouth exam: Present normal external inspection; Absent drooling Teeth exam: Present normal inspection Throat exam: Present tonsillar erythema and tonsillomegaly Neck Neck exam: Present normal inspection, full ROM and trachea midline; Absent tenderness, lymphadenopathy or thyromegaly Chest Chest inspection: Present normal inspection and symmetric chest wall rise; Absent tenderness or rash Respiratory Respiratory exam: Present normal lung sounds bilaterally; Absent respiratory distress, wheezes, stridor or accessory muscle use Cardiovascular Cardiovascular exam: Present regular rate, normal rhythm and normal heart sounds Abdominal Exam Abdominal exam: Present soft; Absent distention, tenderness, guarding, rebound or rigidity Extremities Exam Extremities exam: Present normal inspection, full ROM and normal capillary refill; Absent tenderness or calf tenderness Back Exam Back exam: Present normal inspection and full ROM; Absent tenderness Neurological Exam Neurological exam: Present alert and oriented X3 Psychiatric Psychiatric exam: Present normal affect and normal mood Skin Skin exam: Present warm, dry, intact and normal color Lymphatic Lymphatic Findings: no adenopathy Medical Decision Making Medical Records Medical records reviewed: No I reviewed the patient's medical records. Miller Inquiry Pt receiving controlled substance: No Lab Data Lab results reviewed: Yes I reviewed the patient's lab results.
[2023-11-13 08:40] VITALS: BP 143/84; PULSE 88; RESP 18; TEMP 37.1; O2SAT 96; BMI 44.3
[2023-11-13 09:03] LABS: UTC Influenza A Antigen Negative (Negative)
[2023-11-13 09:04] LABS: UTC Influenza B Antigen Negative (Negative)
[2023-11-13 09:48] VITALS: BP 143/84; PULSE 88; RESP 18; TEMP 37.1; O2SAT 96
[2023-11-13 09:49] LABS: Coronavirus 19, PCR Not Detected (NotDetected); Influenza A, PCR Not Detected (NotDetected); Influenza B, PCR Not Detected (NotDetected)
== END 2023-11-13 09:48 | disposition home or self-care (01) ==
PROVIDERS: Emergency Provider Nurse Practitioner Family; PCP Physician Assistant
DX: J01.90 Acute sinusitis, unspecified (principal); R50.9 Fever, unspecified; R05.9 Cough, unspecified; R09.81 Nasal congestion; R53.81 Other malaise; F17.210 Nicotine dependence, cigarettes, uncomplicated
CPT/HCPCS: 87636; 87804; 99212; 99214; G0463

== ENCOUNTER 2024-01-08 13:34 | Emergency (ER) | payer BC, SELFPAY ==
[2024-01-08 13:55] VITALS: BP 138/85; PULSE 71; RESP 18; TEMP 36.6; O2SAT 98; BMI 42.4
--- NOTE | 2024-01-08 14:05 | ED_ITS ---
Discharge Plan Disposition Patient Disposition: Home, Self-Care Condition: Good Prescriptions Prescriptions: New ibuprofen [IBU] 800 mg tablet 800 mg PO Q8HP PRN (Reason: Moderate Pain) Qty: 30 0RF No Action hydroxyzine HCl 25 mg tablet 25 mg PO HS Qty: 60 2RF bupropion HCl 100 mg tablet sustained-release 12 hr See Rx Instructions .ROUTE .COMPLEX Qty: 90 0RF Dose Instruction: Take 1 tablet by mouth once daily Rx Instructions: Take 1 tablet by mouth once daily hydrochlorothiazide 12.5 mg capsule 12.5 mg PO DAILY PRN (Reason: edema) Qty: 90 1RF progesterone micronized 200 mg capsule 200 mg PO DAILY Patient Comments: TAKE 1 CAPSULE BY MOUTH ONCE DAILY FOR 10 DAYS Referrals Follow up/Referrals: Provider,Referral, MD [Primary Care Provider] - See instructions Gloria Benz DPM [Staff Physician] - See instructions Activity Restrictions/Add. Instructions Additional Instructions/Restrictions: Rest the extremity, Wear the kurtis wrap for compression, Elevate the extremity as tolerated while you are resting. Take ibuprofen for pain. I sent in a prescription to your pharmacy. Follow up with Dr. Benz (podiatry). I put in a referral but you need to call her office and schedule an appointment. Follow up with your regular doctor. GO TO THE ER FOR ANY WORSENING SYMPTOMS Clinical Impressions Clinical Impression: Right ankle sprain, Right foot sprain Stand Alone Forms Stand Alone Forms: Work/School Release Instructions Patient Instructions: DI for Ankle Sprain, DI for Foot Sprain Discharge ED Provider: Gabriel Briggs [facility] General Stated complaint: pain in Rt ankle, no accident Time Seen by Provider: 01/08/24 14:05 History of Present Illness Provider Complaint: She states that for the past 1 week she has had right foot and right ankle pain and swelling. She denies any injury. She does state that she felt a pop in that ankle right before her symptoms started. She denies any other joint pain and complaints. Related Data Home Medications Medication Instructions Recorded Confirmed progesterone micronized 200 mg 200 mg PO DAILY 08/13/23 11/13/23 capsule Previous Rx's Medication Instructions Recorded hydroxyzine HCl 25 mg tablet 25 mg PO HS #60 tabs 07/05/23 bupropion HCl 100 mg tablet,12 hr See Rx Instructions .Route 07/26/23 sustained-release .COMPLEX #90 tabs hydrochlorothiazide 12.5 mg capsule 12.5 mg PO DAILY PRN edema #90 caps 09/19/23 ibuprofen 800 mg tablet (IBU) 800 mg PO Q8HP PRN Moderate Pain 01/08/24 #30 tabs Allergies Allergy/AdvReac Type Severity Reaction Status Date / Time amoxicillin AdvReac yeast Verified 01/08/24 14:22 infection [facility] Disclaimer: The information contained in this section may have been updated after the patient was seen, as this information can be updated by other users. Medical History (Updated 01/08/24 @ 15:07 by Gabriel Briggs APRN) Cannabis use disorder, severe, dependence Chronic post-traumatic stress disorder (PTSD) Generalized anxiety disorder with panic attacks MDD (major depressive disorder), recurrent, with melancholic features Attention Deficit Hyperactivity Disorder (ADHD) Surgical History History of cholecystectomy Social History Smoking Status: Current every day smoker tobacco type: cigarettes packs per day: 1 second hand exposure: Yes alcohol intake: never substance use type: marijuana (Paola smokes about 2 to 3 blunts per day everyday.) current occupational status: employed and student Travel in the last 8 weeks: None household members: none housing: house number of children: 0 current occupational exposures/hazards: No caffeine: Yes ROS Obtained: Yes All systems reviewed & no additional complaints except as documented Constitutional Constitutional: Denies chills, Denies fever(s) and Denies headache(s) Eyes Eyes: Denies eye discharge ENT Ears, Nose, Mouth, and Throat: Denies dizziness, Denies otalgia, Denies headache(s) and Denies sore throat Cardiovascular Cardiovascular: Denies chest pain Respiratory Respiratory: Denies shortness of breath, Denies chest congestion, Denies cough, Denies stridor and Denies wheezing Gastrointestinal Gastrointestingal: Denies nausea or vomiting Musculoskeletal Musculoskeletal: Reports as per HPI Integumentary/Breasts Skin/Breast: Denies redness, Denies rash and Denies wounds Neurologic Neurologic: Denies dizziness, Denies headache(s), Denies paresthesias and Denies radicular pain Allergic/Immunologic Allergic/Immunologic: Denies wheezing Physical Exam General General appearance: alert and in no apparent distress Head Head exam: atraumatic, normocephalic and normal inspection Eye Eye exam: Present normal appearance, PERRL and EOMI ENT ENT exam: Present normal exam, normal oropharynx, mucous membranes moist, TM's normal bilaterally and normal external ear exam Neck Neck exam: Present normal inspection, full ROM and trachea midline; Absent meningismus or lymphadenopathy Chest Chest inspection: Present normal inspection and symmetric chest wall rise; Absent tenderness Respiratory Respiratory exam: Present normal lung sounds bilaterally; Absent respiratory distress Cardiovascular Cardiovascular exam: Present regular rate and normal rhythm; Absent JVD Abdominal Exam Abdominal exam: Present soft and normal bowel sounds; Absent distention, tenderness or guarding Extremities Exam Extremities exam: Present normal capillary refill; Absent calf tenderness Expanded Lower Extremity Exam Right: Hip/Pelvis exam: Present normal inspection and full ROM; Absent tenderness Upper leg exam: Present normal inspection and full ROM; Absent tenderness Knee exam: Present normal inspection and full ROM; Absent tenderness or knee extension intact Lower leg exam: Present normal inspection, full ROM and Achilles tendon intact; Absent tenderness or Homans' sign Ankle exam: Present full ROM, tenderness and swelling; Absent abrasion, laceration, ecchymosis, deformity, crepitus, dislocation, erythema, tenderness over talofibular lig or anterior draw sign Foot/toe exam: Present full ROM, tenderness and swelling; Absent abrasion, laceration, ecchymosis, deformity, crepitus, dislocation, erythema, amputation, puncture wound, foreign body, calcaneal tenderness, tenderness at base of 5th metatarsal, nail avulsion or subungual hematoma Neurovascular/Tendon exam: Present normal capillary refill, normal 2-point discrimination and normal fine/light touch; Absent pulse deficit, motor deficit, sensory deficit, tendon deficit, extremity cold to touch or pallor Gait: observed and limited by pain Back Exam Back exam: Present normal inspection; Absent tenderness Neurological Exam Neurological exam: Present alert and oriented X3 Psychiatric Psychiatric exam: Present normal affect and normal mood Skin Skin exam: Present warm, dry, intact and normal color Lymphatic Lymphatic Findings: no adenopathy Medical Decision Making Medical Records Medical records reviewed: No I reviewed the patient's medical records. Miller Inquiry Pt receiving controlled substance: No Radiology Data #1: Image(s): Ankle Image Reviewed: Yes I reviewed the patient's radiology image and Yes I have reviewed radiologist's interpretation Preliminary Findings: No Fracture Seen Accession No. : [id number] Patient Name / ID : Sam Dan / [id number] Exam Date : 01/08/2024 14:03:08 ( Final ) Study Comment : Sex / Age : F / 33Y Creator : Noe Angulo MD Dictator : Linux System Engineer : Treatment Coordinator : Noe Angulo MD Approver2 : Report Date : 01/08/2024 16:33:50 My Comment : FINAL REPORT CLINICAL HISTORY: right ankle pain x 1.5 weeks ago felt pop swelling COMPARISON: None FINDINGS: Three views show a small calcification in the region of the posterior ankle joint, that may represent a joint body, measuring up to 5 mm in size. Mild degenerative change is present in the ankle. No other evidence of fracture is seen. IMPRESSION: Calcification in the posterior ankle joint region, which may represent a joint body measuring up to 5 mm in size. MRI could confirm if clinically indicated. Mild degenerative change. Reviewed, Interpreted and Dictated by Donal Angulo MD Transcribed by Rosi Barksdale Authenticated and . [facility] #2: Image(s): Foot/Toes Image Reviewed: Yes I reviewed the patient's radiology image and Yes I have reviewed radiologist's interpretation Preliminary Findings: No Fracture Seen Accession No. : [id number] Patient Name / ID : Sam Dan / [id number] Exam Date : 01/08/2024 14:01:58 ( Final ) Study Comment : Sex / Age : F / Y Creator : Noe Angulo MD Dictator : Linux System Engineer : Treatment Coordinator : Noe Angulo MD Approver2 : Report Date : 01/08/2024 16:33:46 My Comment : FINAL REPORT CLINICAL HISTORY: right foot pain x 1.5 weeks ago felt pop swelling COMPARISON: None FINDINGS: Three views show no evidence of acute displaced fracture or dislocation of the visualized bony architecture. The joint spaces appear normal. A minimal calcaneal plantar spur is noted. IMPRESSION: Unremarkable exam. Reviewed, Interpreted and Dictated by Donal Angulo MD Transcribed by Rosi Barksdale Authenticated and [facility] Procedures Risk/Benefits of Procedure(s) Were Explained: Yes Orthopedic Splinting/Casting Injury #1: Side: right Lower Extremity Injury Location: ankle and foot Lower Extremity Immobilizer: Kurtis wrap and applied by nurse/dr bernard Post Cast/Splinting Neuro Status: intact and no change Post Cast/Splinting Vasc Status: intact and no change
[2024-01-08 15:13] VITALS: BP 138/85; PULSE 71; RESP 18; TEMP 36.6; O2SAT 98
== END 2024-01-08 15:13 | disposition home or self-care (01) ==
PROVIDERS: Emergency Provider Nurse Practitioner Family
DX: S93.401A Sprain of unspecified ligament of right ankle, initial encounter (principal); S93.601A Unspecified sprain of right foot, initial encounter; X58.XXXA Exposure to other specified factors, initial encounter
CPT/HCPCS: 73610; 73630; 99212; 99214; G0463

== ENCOUNTER 2024-01-21 10:26 | Outpatient (CLI) | payer BC, SELFPAY ==
--- NOTE | 2024-01-21 10:30 | XR_ITS ---
FINAL REPORT CLINICAL HISTORY: Foot Pain anterior metatarsal area thru great toe FINDINGS: RIGHT FOOT 3 views of the right foot were obtained. There is no acute fracture or dislocation. There are mild degenerative changes at the first MTP joint. Visualized joint spaces are normally aligned. Soft tissues are unremarkable. IMPRESSION: No acute bony abnormality. Reviewed, Interpreted and Dictated by Sav Bellamy III, MD Transcribed by Lola Rowell Authenticated and [facility]
--- NOTE | 2024-01-21 10:30 | XR_ITS ---
FINAL REPORT CLINICAL HISTORY: Ankle pain FINDINGS: RIGHT ANKLE 3 views of the right ankle were obtained. There is no acute fracture or dislocation. There are mild degenerative changes. An osteochondral lesion is seen at the medial talar dome measuring up to 8 mm. There is a small plantar calcaneal spur. The mortise is intact. Visualized joint spaces are normally aligned. Soft tissues are unremarkable. IMPRESSION: 8 mm osteochondral lesion at the medial talar dome. Otherwise, no acute bony abnormality. Reviewed, Interpreted and Dictated by Sav Bellamy III, MD Transcribed by Lola Rowell Authenticated and [facility]
== END 2024-01-21 23:59 | disposition home or self-care (01) ==
LOC: RAD 10:27
PROVIDERS: Visit Provider Podiatrist
DX: M25.571 Pain in right ankle and joints of right foot (principal); S93.601A Unspecified sprain of right foot, initial encounter
CPT/HCPCS: 73610; 73630

== ENCOUNTER 2024-02-19 19:35 | Emergency (ER) | payer BC, SELFPAY ==
[2024-02-19 19:36] VITALS: BP 142/88; PULSE 99; RESP 18; TEMP 37.2; O2SAT 98; BMI 42.7
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
[2024-02-19 19:44] LABS: Microscopic, Urine URINE MICROSCOPIC (MICROSCOPIC)
[2024-02-19 19:45] LABS: Appearance,Urine CLEAR (Clear); Bilirubin,Urine Negative (Negative); Blood, Urine Negative (Negative); Color,Urine YELLOW (Yellow); Glucose,Urine (UA) Negative (Negative); Ketones,Urine Negative (Negative); Leukocyte Esterase,Urine Negative (Negative); Nitrate,Urine Negative (Negative); PH,Urine 5.5 (5.0-8.5); Protein,Urine Negative (Negative); Specific Gravity, Urine >= 1.030 (1.005-1.030); Urobilinogen,Urine 0.2 EU/dl (0.2)
[2024-02-19 19:46] VITALS: BP 142/88; PULSE 99; RESP 18; TEMP 37.2; O2SAT 98
[2024-02-19 20:01] LABS: Urine Pregnancy, HCG Qual. Negative (Negative)
[2024-02-19 20:05] VITALS: BP 142/88; PULSE 99; RESP 18; TEMP 37.2; O2SAT 98
[2024-02-19] MEDS: cefTRIAXone 1GM VIAL 1 GM IM (20:09)
[2024-02-19] MEDS: LIDOCAINE 1% 5ML PF VIAL IM (20:09)
[2024-02-19] MEDS: metroNIDAZOLE 500 MG TABLET PO (20:09)
[2024-02-19] MEDS: DOXYCYCLINE HYCL 100 MG TABLET PO (20:09)
[2024-02-22 22:06] LABS: Neisseria gonorrhoeae, NAA Negative (Negative)
[2024-02-29 11:12] LABS: Trichomonas Vaginalis, NAA POSITIVE
--- NOTE | 2024-03-01 12:47 | PC.NURSE ---
reviewed urine culture results with Ally. pt is on correct abx. spoke with pt who states she has had clinical improvement. no further action needed.
== END 2024-02-19 20:13 | disposition home or self-care (01) ==
PROVIDERS: Physician Assistant; Emergency Provider Emergency Medicine
DX: R30.0 Dysuria (principal); F17.210 Nicotine dependence, cigarettes, uncomplicated; Z11.3 Encounter for screening for infections with a predominantly sexual mode of transmission
CPT/HCPCS: 81001; 81025; 87491; 87591; 87661; 96372; 99283; J0696

== ENCOUNTER 2024-07-17 17:28 | Emergency (ER) | payer BC, SELFPAY ==
[2024-07-17 17:30] VITALS: BP 145/83; PULSE 93; RESP 18; TEMP 36.9; O2SAT 98; BMI 41.5
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
--- NOTE | 2024-07-17 17:39 | CT_ITS ---
PROCEDURE INFORMATION: Exam: CT Abdomen And Pelvis With Contrast Exam date and time: 07/17/2024 6:23 PM Age: 34 years old Clinical indication: Abdominal pain; Localized; Right lower quadrant (rlq); Additional info: Abdominal pain S/P, hsg yesterdsy TECHNIQUE: Imaging protocol: Computed tomography of the abdomen and pelvis with contrast. Radiation optimization: All CT scans at this facility use at least one of these dose optimization techniques: automated exposure control; mA and/or kV adjustment per patient size (includes targeted exams where dose is matched to clinical indication); or iterative reconstruction. Contrast material: ISOVUE; Contrast volume: 75 ml; Contrast route: IV; COMPARISON: CT ABDOMEN PELVIS W CON 03/15/2020 10:51 AM FINDINGS: Lungs: The visualized lung bases demonstrate no focal infiltrates or pleural effusions. Liver: Moderate diffuse hepatic steatosis is identified. Gallbladder and biliary ducts: There has been a cholecystectomy. Pancreas: The pancreas is normal. Spleen: The spleen is normal. Adrenal glands: The adrenal glands appear within normal limits. Kidneys and ureters: The kidneys are normal. Stomach and bowel: The stomach appears within normal limits. No wall thickening or inflammatory change. Appendix: No evidence of appendicitis. Intraperitoneal space: No free air. No evidence for focal fluid collection or ascites. No evidence for omental thickening. Vasculature: Unremarkable. No abdominal aortic aneurysm. Lymph nodes: Unremarkable. No pathologically enlarged lymph nodes are identified. Urinary bladder: The bladder appears within normal limits. No wall thickening. Reproductive: There is retained contrast material within the right fallopian tube which appears distended at the distal portion of the fallopian tube. Diameter of the fallopian tube measures 19 mm. Bones/joints: Unremarkable. No acute fracture. Soft tissues: Unremarkable. IMPRESSION: There is prominent retained contrast material from recent HSG within the right fallopian tube which appears distended at the distal portion of the fallopian tube. Diameter of the fallopian tube measures 19 mm.
[2024-07-17] MEDS: ONDANSETRON 4MG/2ML VIAL 4 MG IV (17:50)
[2024-07-17] MEDS: ACETAMINOPHEN 1,000MG/100ML VIAL 1000 MG IV (17:50)
[2024-07-17] MEDS: KETOROLAC 30MG/ML VIAL 15 MG IV (17:50)
[2024-07-17 17:57] LABS: Microscopic, Urine URINE MICROSCOPIC (MICROSCOPIC)
[2024-07-17 17:58] LABS: Basophils # 0.2 K/mm3 (0-0.2); Basophils % 1.4 % (0.1-2.0); Eosinophils # 0.2 K/mm3 (0.0-0.4); Eosinophils % 1.2 % (0.1-12.0); Hematocrit 45.1 % (37.0-47.0); Hemoglobin 15.5 g/dL (12.2-16.2); Lymphocytes # 1.7 K/mm3 (0.7-4.5); Lymphocytes % 11.2 % (10-50); Mean Corpuscular HGB Conc 34.3 g/dL (31.8-35.4); Mean Corpuscular Hemoglobin 30.7 pg (27.0-31.2); Mean Corpuscular Volume 89.5 fl (81-99); Mean Platelet Volume 8.7 fl (7.4-10.4); Monocytes # 0.7 K/mm3 (0.1-1.0); Neutrophils % 81.3 % (37.0-80.0); Platelet Count 236 K/mm3 (142-424); Red Blood Count 5.04 M/mm3 (4.20-5.40); Red Cell Distribution Width 13.3 % (11.5-17.5); White Blood Count 14.8 K/mm3 (4.8-10.8)
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
[2024-07-17 17:59] LABS: Appearance,Urine CLEAR (Clear); Bilirubin,Urine Negative (Negative); Blood, Urine Negative (Negative); Color,Urine YELLOW (Yellow); Glucose,Urine (UA) Negative (Negative); Ketones,Urine Negative (Negative); Leukocyte Esterase,Urine Negative (Negative); Nitrate,Urine Negative (Negative); PH,Urine 7.5 (5.0-8.5); Protein,Urine Negative (Negative); Urobilinogen,Urine 0.2 EU/dl (0.2)
[2024-07-17 18:05] LABS: Albumin Level 4.3 g/dl (3.5-5.0); Chloride 106 mmol/L (98-107); Potassium 3.9 mmoL/L (3.5-5.1); Sodium 139 mmol/L (136-145); Urine Pregnancy, HCG Qual. Negative (Negative)
[2024-07-17 18:07] LABS: Lactic Acid 1.5 mmol/L (0.7-2.1)
[2024-07-17 18:08] LABS: Alanine Aminotransferase 25 U/L (12-78); Albumin/Globulin Ratio 1.5 (1.1-1.8); Alkaline Phosphatase 81 U/L (38-126); Anion Gap 10.9 mEq/L (5-15); Aspartate Amino Transferase 22 U/L (14-36); Bilirubin,Total 0.6 mg/dl (0.2-1.3); Blood Urea Nitrogen 14 mg/dl (7-17); Carbon Dioxide 26 mmol/L (22.0-30.0); Creatinine Clearance Estimated 90 mL/min (50-200); Estimated Glomerular Filt Rate 83 ml/min (>60); GFR (African American) 100 ML/MIN (>60); Globulin 2.9 g/dL (1.3-3.2); Lipase 281 U/L (23-300); Magnesium 1.6 mg/dl (1.6-2.3); Total Protein,Serum 7.2 g/dl (6.3-8.2)
[2024-07-17 18:09] LABS: Glucose 127 mg/dl (74-100)
[2024-07-17 18:14] LABS: RBC,Urine Occasional #/hpf (0-3)
[2024-07-17 18:15] LABS: Amorphous Sediment,Urine 4+ /lpf; Bacteria,Urine 1+ /lpf
[2024-07-17] MEDS: 0.9 % SODIUM CHLORIDE 1000ML 1,000 ML 999 ML IV (18:19)
--- NOTE | 2024-07-17 18:20 | PC.NURSE ---
PT TO CT
[2024-07-17 18:26] LABS: Procalcitonin 0.044 ng/mL (0.0-2.0)
[2024-07-17 18:30] VITALS: BP 133/69; PULSE 100; O2SAT 98
[2024-07-17] MEDS: IOPAMIDOL-370 (76%);100ML BOTTLE 75 ML IV (18:31)
[2024-07-17] MEDS: SODIUM CHLORIDE 0.9% 10ML SYR (RAD ONLY) 10 ML IV (18:31)
[2024-07-17] MEDS: SULFA/TRIMETHOPRIM 1 TABLET 1 EACH PO (18:46)
[2024-07-17 19:00] VITALS: BP 123/81; PULSE 96; O2SAT 97
[2024-07-17 19:33] VITALS: BP 138/63; PULSE 100; O2SAT 96
--- NOTE | 2024-07-17 19:39 | PC.NURSE ---
Collected both sets of blood cultures on this patient and sent to the lab.
[2024-07-17 20:00] VITALS: BP 139/80; PULSE 93; O2SAT 97
[2024-07-17 20:15] VITALS: BP 139/80; PULSE 92; RESP 20; TEMP 36.5; O2SAT 97
[2024-07-17 22:31] LABS: HIV (1&2) Antibody Rapid NONREACTIVE (NONREACTIVE)
[2024-07-19 08:22] LABS: HCV Ab Non Reactive (Non Reactive)
[2024-07-21 19:09] LABS: Neisseria gonorrhoeae, NAA Negative (Negative)
== END 2024-07-17 20:20 | disposition home or self-care (01) ==
PROVIDERS: Physician Assistant; Emergency Provider Emergency Medicine
DX: R10.31 Right lower quadrant pain (principal); N39.0 Urinary tract infection, site not specified
CPT/HCPCS: 74177; 80053; 81001; 81025; 83605; 83690; 83735; 84145; 85025; 86803; 87040; 87086; 87389; 87491; 87591; 96361; 96374; 96375; 99285; J0131; J1885; J2405; J7030; Q9967

== ENCOUNTER 2025-02-06 09:11 | Outpatient (CLI) | payer MEDICAID, SELFPAY ==
--- NOTE | 2025-02-06 10:02 | XR_ITS ---
FINAL REPORT CLINICAL HISTORY: Back pain COMPARISON: None FINDINGS: LUMBAR SPINE 3 views of the lumbar spine were obtained. There is no acute fracture. There is no malalignment. The vertebrae are normal in height. The disc spaces are preserved. There is mild facet sclerosis in the lower lumbar spine. IMPRESSION: Degenerative changes without acute process. Reviewed, Interpreted and Dictated by Yung Matias MD Transcribed by Zahida Tillman Authenticated and . [facility]
== END 2025-02-06 23:59 | disposition home or self-care (01) ==
LOC: RAD 09:12
PROVIDERS: PCP Family Medicine; Visit Provider Student in an Organized Health Care Education/Training Program
DX: M47.816 Spondylosis without myelopathy or radiculopathy, lumbar region (principal); R30.0 Dysuria
CPT/HCPCS: 72100; 87086